=== PATIENT | male | born 1950 | race Caucasian/White ===

== ENCOUNTER 2017-03-17 08:55 | Day surgery (SDC) | payer MEDICARE ==
[~2017-03-17 08:55] MED LIST: Lactated Ringers 1,000 ML IV SCH; Sodium Chloride 0.9% 1000 ML 1,000 ML IV SCH; Sodium Chloride 0.9% 1000 ML 1,000 ML ONE; XYLOCAINE 1% HCL 20 ML MDV ONE
[2017-03-17] MEDS ORDERED: VERSED 5 MG/5 ML IV ONE (08:56)
[2017-03-17] MEDS ORDERED: DEMEROL 50 MG SDV IJ ONE ×2 (08:56)
[2017-03-17] MEDS ORDERED: Sodium Chloride 0.9% 1000 ML 1,000 ML ONE (09:07)
[2017-03-17 13:29] VITALS: O2SAT 95
[2017-03-17 14:18] VITALS: BP 121/72; PULSE 65
--- NOTE | 2017-03-17 15:32 | OP ---
SURGERY DATE/TIME: 03/17/2017 1150 PREOPERATIVE DIAGNOSIS: A 2.5 cm nonhealing lesion of back possibly cancer. POSTOPERATIVE DIAGNOSIS: A 2.5 cm nonhealing lesion of back possibly cancer. PROCEDURE: Excision of 2.5 cm lesion through a 5 x 3 cm elliptical excision with closure. SURGEON: Ishmael Cunningham M.D. GAS REVERSER: Medical Student III. ANESTHESIA: IVS sedation local. COMPLICATIONS: None. CONDITION: Stable. INDICATION: A patient requiring excision. DESCRIPTION OF PROCEDURE: Taken to the operating room. Routine prep and drape. IV sedation local anesthetic. Elliptical excision 2.5 cm through a 5 cm transverse incision, 3 cm cephalad caudad down through the skin subcu, deep fascia and deep tissue in order to perform closure. Closed with simple interrupted sutures and vertical mattress sutures #2-0 Prolene. Sterile dressing applied. The patient tolerated the procedure satisfactorily.
== END 2017-03-17 14:05 | disposition home or self-care (01) ==
LOC: SDC 08:55
PROVIDERS: ATTEND Surgery
PROC: 0HB6XZZ Excision of Back Skin, External Approach (ICD-10-PCS; principal; 2017-03-17)
DX: C43.59 Malignant melanoma of other part of trunk (principal); L98.9 Disorder of the skin and subcutaneous tissue, unspecified
CPT/HCPCS: 88305; J2175; J2250

== ENCOUNTER 2017-04-28 07:38 | Day surgery (SDC) | payer MEDICARE ==
--- NOTE | 2017-04-25 08:28 | HP ---
DATE OF SURGERY: 04/28/2017 ADMISSION DIAGNOSIS: Deep melanoma of the back. ANTICIPATED PROCEDURE: Wide excision with split thickness skin graft and [place] lymph node biopsy. PAST MEDICAL HISTORY: ALLERGIES: NONE. PAST SURGICAL HISTORY: Forehead scalp cancer. Two surgeries on the left foot. SOCIAL HISTORY: Negative. FAMILY HISTORY: Negative. REVIEW OF SYSTEMS: Negative. PHYSICAL EXAMINATION: VITAL SIGNS: Normal. CHEST: Clear. COR: Regular. IMPRESSION: The patient has deep melanoma of the back and is requiring wide excision [place] lymph node sampling.
[~2017-04-28 07:38] MED LIST changes: +Lactated Ringers 1,000 ML IV ONE; -Lactated Ringers 1,000 ML IV SCH; +Sensorcaine 0.25% 10 ML ONE; -Sodium Chloride 0.9% 1000 ML 1,000 ML IV SCH; -Sodium Chloride 0.9% 1000 ML 1,000 ML ONE; -XYLOCAINE 1% HCL 20 ML MDV ONE
[2017-04-28] MEDS ORDERED: Xylocaine 2%-Epi 1:100,000 MDV IJ ONE (07:39)
[2017-04-28] MEDS ORDERED: Quelicin Fliptop 200 MG/10 ML IJ ONE (07:39)
[2017-04-28] MEDS ORDERED: Versed 2 MG/2 ML Injection IV ONE (07:39)
[2017-04-28] MEDS ORDERED: DIPRIVAN 200 MG/20 ML IV ONE (07:39)
[2017-04-28] MEDS ORDERED: SUBLIMAZE 250 MCG/5 ML IJ ONE (07:39)
[2017-04-28] MEDS ORDERED: Zemuron 100 MG/10 ML IJ ONE (07:39)
[2017-04-28] MEDS ORDERED: MORPHINE SULFATE 10 MG/ML IV ONE (07:39)
[2017-04-28] MEDS ORDERED: BRIDION 200MG/2ML IV ONE (07:39)
[2017-04-28] MEDS ORDERED: Lactated Ringers 1,000 ML IV ONE (08:20)
[2017-04-28] MEDS ORDERED: CEFAZOLIN 2 GM-D5W BAG** 2 GM/50 ML ML IV ONE (08:21)
[2017-04-28] MEDS ORDERED: Lactated Ringers 1,000 ML IV SCH (08:30)
[2017-04-28] MEDS ORDERED: CEFAZOLIN 2 GM-D5W BAG** 2 GM/50 ML ML IV SCH (08:30)
--- NOTE | 2017-04-28 11:26 | XRAY ---
Indication: Upper back melanoma. 4 subcutaneous injections of technetium 99 sulfur colloid totaling 250 Ci was performed around the biopsy proven melanoma in the upper back. Delayed imaging was performed out to 90 minutes. A single focus of increased radiopharmaceutical activity seen in the left axilla which was demarcated for the surgeon. Impression: Technically successful nuclear medicine sentinel node injection centered around melanoma. Single sentinel node identified in the left axilla.
[2017-04-28] MEDS ORDERED: BACIGUENT 30 GM ONE (13:48)
[2017-04-28] MEDS ORDERED: MINERAL OIL LIGHT 10 ML FOR SURGERY ONE (13:49)
[2017-04-28] MEDS ORDERED: SUBLIMAZE 100 MCG/2 ML ONE (17:33)
[2017-04-28] MEDS ORDERED: Zofran 4 MG/2 ML VIAL IV STA (18:05)
[2017-04-28 21:28] VITALS: O2SAT 94
[2017-04-28 21:32] VITALS: BP 126/75; PULSE 65
--- NOTE | 2017-05-02 08:40 | OP ---
SURGERY DATE/TIME: 04/28/2017 1525 PREOPERATIVE DIAGNOSIS: Thick melanoma 4 mm of the upper back. POSTOPERATIVE DIAGNOSIS: Thick melanoma 4 mm of the upper back. PROCEDURES: 1) Left axillary [place] lymph node sampling. 2) Wide excision 12 to 14 cm circular of the excision of the lesion all the way down to and including fascia of the back. 3) [place] of 144 sq/cm split thickness skin graft from the left lower chest wall. 4) Application of 144 sq/cm of split thickness skin graft. SURGEON: Ishmael Cunningham M.D. ANESTHESIA: General. COMPLICATIONS: None. CONDITION: Stable. INDICATION: A patient with thick melanoma of the back. DESCRIPTION OF PROCEDURE: Taken to surgery. General anesthetic. Positioning. The axilla was addressed first. About four nodes were taken. One of these had increased activity consistent with [place] node and it was labeled as such. Hemostasis satisfactory. Closed with 3-0 and 4-0 Vicryl. A wide circular excision greater total hip arthroplasties 4 cm margin around the entire previous old incision. I think it is the older incision site. There was nearly a 2 cm elliptical margin of the lesion this was taken down in a slightly beveled fashion to the fascia. Hemostasis obtained with electrocautery. Split thickness skin graft was then harvested from the left lateral chest wall. It was then meshed a 1.5 to 1. It was then applied with antwon. Sterile ointment and sterile dressing applied. Sterile dressing at the other site. The patient tolerated the procedures satisfactorily.
== END 2017-04-28 20:40 | disposition home or self-care (01) ==
LOC: SDC 07:38
PROVIDERS: ATTEND Surgery
PROC: 0HR6X73 Replacement of Back Skin with Autologous Tissue Substitute, Full Thickness, External Approach (ICD-10-PCS; principal; 2017-04-28)
PROC: 0HB5XZZ Excision of Chest Skin, External Approach (ICD-10-PCS; 2017-04-28)
DX: C43.59 Malignant melanoma of other part of trunk (principal); Z85.828 Personal history of other malignant neoplasm of skin
CPT/HCPCS: 00300; 00400; 78195; 88341; 88342; A9541; J0330; J0690; J2250; J2270; J2405; J2704; J3010; A9270-GY

== ENCOUNTER 2017-05-11 09:54 | Emergency (ER) | payer MEDICARE ==
[2017-05-11 10:05] VITALS: O2SAT 94
[2017-05-11] MEDS ORDERED: Sodium Chloride 0.9% 1000 ML 1,000 ML IV STA (10:58)
--- NOTE | 2017-05-11 11:09 | ERPHSYRPT ---
- History of Present Illness Time Seen by Provider: 05/11/17 10:58 Source: patient, family Exam Limitations: no limitations Patient Subjective Stated Complaint: STATES HAS HAD SWELLING TO RIGHT SIDE OF NECK SINCE TUESDAY. HX OF SKIN CANCER WITH LYMPH NODE INVOLVEMENT OF LEFT AXILLA. HAD CANCER REMOVED FROM MID BACK WITH SKIN GRAFT DONE AND HAD LYMPH NODE FROM LEFT AXILLA REMOVED. Triage Nursing Assessment: HAS OPEN SURGICAL WOUND TO MID BACK WITH METAL KEYLA AROUND IT. CLEAN SURGICAL WOUND LEFT AXILLA. MODERATE SWELLING AND TENDERNESS NOTED TO RIGHT ANTERIOR NECK. Physician History: The patient is a 67-year-old male with family complaining of a sudden onset of right neck pain and swelling just below his jaw that began on Tuesday. He has not been able to eat solid food since the swelling. He has been able to drink liquids. He is not able to speak clearly. His voice is muffled. He denies vomiting. 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 Within the past month he had surgery in his mid upper back to remove a large section of tissue that had melanoma. It had spread into the lymph node under his left axilla. The lymph nodes were also surgically excised. Timing/Duration: abrupt onset Severity: severe ENT Location: throat Prearrival Treatment: no prearrival treatment Modifying Factors: Improves With: nothing Associated Symptoms: drooling, poor solids intake, swollen glands, sore throat Allergies/Adverse Reactions: No Known Drug Allergies Allergy (Verified 05/11/17 10:10) Home Medications: No Reportable Medications [No Reported Medications] 05/11/17 [History] Hx Tetanus, Diphtheria Vaccination/Date Given: No Hx Influenza Vaccination/Date Given: No Hx Pneumococcal Vaccination/Date Given: No - Review of Systems Constitutional: No Fever, No Chills Eyes: No Symptoms Ears, Nose, & Throat: Throat Pain, Throat Swelling, Hoarse, Painful Swallowing Respiratory: No Cough, No Dyspnea Cardiac: No Chest Pain, No Edema, No Syncope Abdominal/Gastrointestinal: No Abdominal Pain, No Nausea, No Vomiting, No Diarrhea Genitourinary Symptoms: No Dysuria Musculoskeletal: No Back Pain, No Neck Pain Skin: No Rash Neurological: No Dizziness, No Focal Weakness, No Sensory Changes Psychological: No Symptoms Endocrine: No Symptoms Hematologic/Lymphatic: No Symptoms Immunological/Allergic: No Symptoms - Past Medical History Pertinent Past Medical History: Yes Neurological History: TIA ENT History: No Pertinent History Cardiac History: No Pertinent History Respiratory History: No Pertinent History Endocrine Medical History: No Pertinent History Musculoskeletal History: Arthritis GI Medical History: Hernia History: No Pertinent History Psycho-Social History: No Pertinent History Male Reproductive Disorders: No Pertinent History Other Medical History: FOOT PROBLEMS HAS HAD INFUSION OF ANTIBIOTICS X 3 weeks 2 years ago - Past Surgical History Past Surgical History: Yes Neuro Surgical History: No Pertinent History Cardiac: No Pertinent History Respiratory: No Pertinent History Gastrointestinal: No Pertinent History Genitourinary: No Pertinent History Musculoskeletal: Orthopedic Surgery Male Surgical History: No Pertinent History Other Surgical History: SKIN CANCER REMOVAL left foot x 2, and scalp, and forehead. - Social History Smoking Status: Never smoker Exposure to second hand smoke: No Drug Use: none Patient Lives Alone: No - Nursing Vital Signs Nursing Vital Signs: Initial Vital Signs Temperature 98.0 F 05/11/17 10:04 Pulse Rate 108 H 05/11/17 10:04 Respiratory Rate 18 05/11/17 10:04 Blood Pressure 131/88 05/11/17 10:04 O2 Sat by Pulse Oximetry 94 L 05/11/17 10:04 Pain Scale Pain Intensity 3 - Physical Exam General Appearance: moderate distress Eye Exam: bilateral eye: normal inspection Ear Exam: bilateral ear: auricle normal Nasal Exam: normal inspection Throat Exam: excessive drooling, pharynx swelling, tonsillar exudate, tonsillar swelling, voice changes Neck Exam: lymphadenopathy (R) Cardiovascular/Respiratory Exam: normal breath sounds, regular rate/rhythm Abdominal Exam: non-tender, soft Neurologic Exam: alert, oriented x 3, sensation nml, No motor deficits Skin Exam: normal color, warm, dry, other (Examination of left foot shows multiple skin lesions in various degrees of healing. 2 skin lesions on the sole of his forefoot have granulomatous material. There is another lesion over the approximate left MTP joint. There is an open wound between the first 2 toes. The second toe has been surgically shortened.) SpO2 Interpretation: normal SpO2: 94 Oxygen Delivery: Room Air - CT Exams Soft Tissue Neck CT Interpretation: Tele-radiologist Report, Other (Marked enlarged palatine tonsils with dramatic narrowing of oropharynx per .) Ordered Tests: Active Orders 24 hr Category Date Time Status IV Insertion STAT Care 05/11/17 10:58 Active NECK WITH CONTRAST [CT] Stat Exams 05/11/17 10:59 Completed CBC W DIFF Stat Lab 05/11/17 11:27 Completed CMP Stat Lab 05/11/17 11:27 Completed [place] Screen Stat Lab 05/11/17 11:27 Completed STREP SCREEN-BETA A Stat Lab 05/11/17 11:27 Completed Medication Summary Generic Name Dose Route Start Last Admin Trade Name Freq PRN Reason Stop Dose Admin Ceftriaxone Sodium/Dextrose 1 g in 50 mls @ 100 mls/hr 05/11/17 13:29 13:34 Rocephin 1 Gm-D5w 50 Ml Bag IV 05/11/17 13:58 100 mls/hr STAT STA Administration Discontinued Medications Generic Name Dose Route Start Last Admin Trade Name Freq PRN Reason Stop Dose Admin Dexamethasone Sodium Phosphate 10 mg 05/11/17 13:28 05/11/17 13:34 Decadron 10mg Inj. IV 05/11/17 13:29 10 mg STAT ONE Administration Dexamethasone Sodium Phosphate Confirm 05/11/17 13:32 Decadron 10mg Inj. Administered 05/11/17 13:33 Dose 10 mg .ROUTE .STK-MED ONE Sodium Chloride 1,000 mls @ 999 mls/hr 05/11/17 10:58 05/11/17 11:28 Sodium Chloride 0.9% 1000 Ml IV 05/11/17 11:58 999 mls/hr .Q1H1M STA Administration Sodium Chloride Confirm 05/11/17 11:26 Sodium Chloride 0.9% 1000 Ml Administered 05/11/17 11:27 Dose 1,000 mls @ ud .ROUTE .STK-MED ONE Ceftriaxone Sodium/Dextrose Confirm 05/11/17 13:33 Rocephin 1 Gm-D5w 50 Ml Bag Administered 05/11/17 13:34 Dose 1 g in 50 mls @ ud IV .STK-MED ONE Lab/Rad Data: Laboratory Result Diagrams 05/11/17 11:27 05/11/17 11:27 Laboratory Results 05/11/17 05/11/17 05/11/17 Range/Units 11:27 11:27 11:27 WBC (4.0-10.5) K/mm3 RBC (4.1-5.6) M/mm3 Hgb (12.5-18.0) gm/dl Hct (42-50) % MCV (78-100) fl MCH (26-32) pg MCHC (32-36) g/dl RDW (11.5-14.0) % Plt Count (150-450) K/mm3 MPV (6-9.5) fl Gran % (36.0-66.0) % Lymphocytes % (24.0-44.0) % Monocytes % (0.0-12.0) % Eosinophils % (0.00-5.0) % Basophils % (0.0-0.4) % Basophils # (0-0.4) Sodium (136-145) mEq/L Potassium (3.5-5.1) mEq/L Chloride (98-107) mEq/L Carbon Dioxide (21-32) mEq/L Anion Gap (5-15) MEQ/L BUN (9-20) mg/dL Creatinine (0.55-1.30) mg/dl Estimated GFR ML/MIN Glucose (70-110) MG/DL Calcium (8.5-10.1) mg/dL Total Bilirubin (0.2-1.0) mg/dL AST (15-37) U/L ALT (12-78) U/L Alkaline Phosphatase (46-116) U/L Serum Total Protein (6.4-8.2) gm/dL Albumin (3.4-5.0) g/dL Monoscreen POSITIVE (Negative) Influenza Type A Ag NEGATIVE (NEGATIVE) Influenza Type B Ag NEGATIVE (NEGATIVE) RSV (PCR) NEGATIVE (Negative) Streptococcus Screen POSITIVE (Negative) Slides for Path Review 05/11/17 05/11/17 Range/Units 11:27 11:27 WBC 15.3 H (4.0-10.5) K/mm3 RBC 5.37 (4.1-5.6) M/mm3 Hgb 16.2 (12.5-18.0) gm/dl Hct 47.6 (42-50) % MCV 88.6 (78-100) fl MCH 30.2 (26-32) pg MCHC 34.0 (32-36) g/dl RDW 13.8 (11.5-14.0) % Plt Count 238 (150-450) K/mm3 MPV 9.8 H (6-9.5) fl Gran % 80.3 H (36.0-66.0) % Lymphocytes % 8.9 L (24.0-44.0) % Monocytes % 10.2 (0.0-12.0) % Eosinophils % 0.3 (0.00-5.0) % Basophils % 0.3 (0.0-0.4) % Basophils # 0.04 (0-0.4) Sodium 137 (136-145) mEq/L Potassium 4.1 (3.5-5.1) mEq/L Chloride 99 (98-107) mEq/L Carbon Dioxide 26.3 (21-32) mEq/L Anion Gap 15.4 H (5-15) MEQ/L BUN 11 (9-20) mg/dL Creatinine 1.10 (0.55-1.30) mg/dl Estimated GFR > 60 ML/MIN Glucose 125 H (70-110) MG/DL Calcium 8.9 (8.5-10.1) mg/dL Total Bilirubin 0.90 (0.2-1.0) mg/dL AST 19 (15-37) U/L ALT 19 (12-78) U/L Alkaline Phosphatase 117 H (46-116) U/L Serum Total Protein 9.3 H (6.4-8.2) gm/dL Albumin 3.0 L (3.4-5.0) g/dL Monoscreen (Negative) Influenza Type A Ag (NEGATIVE) Influenza Type B Ag (NEGATIVE) RSV (PCR) (Negative) Streptococcus Screen (Negative) Slides for Path Review YES - Progress Progress: unchanged Progress Note: 05/11/17 13:43 I first called [facility] and spoke with Dr. Rudolph who was unable to accept the patient. I then called [facility] but have not been able to speak with the hospitalist. I spoke with Dr. Franchesca Blas of ENT in [place] who would see the patient as a consult at [facility]. Dr. Robledo, hospitalist, a [facility] accepts patient. Counseled pt/family regarding: lab results, diagnosis, rad results - Departure Time of Disposition: 13:40 Departure Disposition: Transfer (Transfer to [facility] per Dr Robledo, hospitalist.) Clinical Impression: Tonsillar enlargement, Strep pharyngitis, Mononucleosis Condition: Stable Critical Care Time: No Referrals: DOCTOR,NO FAMILY [Primary Care Provider] -
[2017-05-11] MEDS ORDERED: Sodium Chloride 0.9% 1000 ML 1,000 ML ONE (11:26)
[2017-05-11 11:30] LABS: BASOPHIL % 0.3 % (0.0-0.4); Basophil (Absolute #) 0.04 (0-0.4); Eosinophil % 0.3 % (0.00-5.0); Eosinophil (Absolute #) 0.05 (0-0.5); Granulocyte Absolute (ANC) 12.27 (1.4-6.9); Granulocytes % 80.3 % (36.0-66.0); Hematocrit 47.6 % (42-50); Hemoglobin 16.2 gm/dl (12.5-18.0); Lymphocyte (Absolute #) 1.36 (1.0-4.6); Lymphocytes % 8.9 % (24.0-44.0); Mean Cell Volume 88.6 fl (78-100); Mean Corpuscular Hemoglobin 30.2 pg (26-32); Mean Platelet Volume 9.8 fl (6-9.5); Monocyte (Absolute #) 1.55 (0.0-1.3); Monocytes % 10.2 % (0.0-12.0); Platelet Count 238 K/mm3 (150-450); Red Blood Count 5.37 M/mm3 (4.1-5.6); Red Cell Distribution Width 13.8 % (11.5-14.0); White Blood Count 15.3 K/mm3 (4.0-10.5)
[2017-05-11 11:43] LABS: Slide Review 1 YES
[2017-05-11 12:02] LABS: INFLUENZA A NEGATIVE (NEGATIVE); INFLUENZA B NEGATIVE (NEGATIVE); RESPIRATORY SYNCTIAL VIRUS NEGATIVE (Negative)
[2017-05-11 12:05] LABS: ALKALINE PHOSPHATASE 117 U/L (46-116); ANION GAP 15.4 MEQ/L (5-15); BLOOD UREA NITROGEN 11 mg/dL (9-20); CHLORIDE 99 mEq/L (98-107); Calcium 8.9 mg/dL (8.5-10.1); Carbon Dioxide 26.3 mEq/L (21-32); Glucose 125 MG/DL (70-110); Potassium 4.1 mEq/L (3.5-5.1); SGOT/AST 19 U/L (15-37); SGPT/ALT 19 U/L (12-78); SODIUM 137 mEq/L (136-145); Total Protein 9.3 gm/dL (6.4-8.2)
--- NOTE | 2017-05-11 12:57 | XRAY ---
Indication: Bilateral pain/swelling under jaw. History melanoma. Multiple contiguous axial images obtained through the neck using 80 cc Isovue 370 contrast. Sagittal and coronal reformatted images obtained. Comparison: None There are multiple bilateral dental amalgams producing beam artifact limiting these levels. Moderate/marked enlargement of the palatine tonsils, right greater than left dramatically narrows the oropharynx. Adenoids unremarkable. Remaining infraglottic airway widely patent. Normal epiglottis. There are scattered borderline prominent bilateral cervical and lesser degree submandibular lymph nodes, largest level I on the right measuring 13 x 21 mm. Smaller subcentimeter bilateral supraclavicular nodes. Parotid and submental glands are bilaterally symmetric. Major arteries and veins are normal in course and caliber. Thyroid gland atrophic without focal mass/nodule. Underlying cervical spine demonstrates moderate multilevel degenerative changes greatest at the C6-C7 level. Floor the right maxillary sinus demonstrates mild mucosal thickening. Base of the brain and lung apices are unremarkable. Posterior back demonstrate partially visualized posterior changes with numerous surgical antwon. Impression: 1. Moderate/marked enlarged palatine tonsils, right greater than left. Rule out tonsillitis. 2. Several borderline prominent lymph nodes bilaterally presumed reactive. Metastasis not completely excluded given history of melanoma. 3. Incidental multilevel cervical degenerative changes and right maxillary maxillary sinus disease. CT DI 13.16
[2017-05-11] MEDS ORDERED: DECADRON 10MG INJ. IV ONE (13:28)
[2017-05-11] MEDS ORDERED: ROCEPHIN 1 Gm-D5w 50 ml Bag** 1 G/50 ML IVPB IV STA (13:29)
[2017-05-11] MEDS ORDERED: DECADRON 10MG INJ. ONE (13:32)
[2017-05-11] MEDS ORDERED: ROCEPHIN 1 Gm-D5w 50 ml Bag** 1 G/50 ML IVPB IV ONE (13:33)
[2017-05-11 14:44] VITALS: BP 108/85; PULSE 84
== END 2017-05-11 14:45 | disposition short-term general hospital (02) ==
LOC: ED 09:54
DX: J35.1 Hypertrophy of tonsils (principal); J02.0 Streptococcal pharyngitis; B27.90 Infectious mononucleosis, unspecified without complication; M54.2 Cervicalgia; L98.9 Disorder of the skin and subcutaneous tissue, unspecified; Z85.828 Personal history of other malignant neoplasm of skin
CPT/HCPCS: 36000; 36415; 70491; 80053; 85025; 86308; 87430; 87631; 96360; 96365; 96374; 99285; J0696; J1100

== ENCOUNTER 2017-06-20 20:01 | Inpatient (IN) | payer MEDICARE, SELFPAY ==
[2017-06-20] MEDS ORDERED: Sodium Chloride 0.9% 1000 ML 1,000 ML IV STA (20:25)
[2017-06-20] MEDS ORDERED: CLINDAMYCIN-D5W 900 MG/50 ML*** 900 MG/50 ML BAG IV STA (20:27)
[2017-06-20] MEDS ORDERED: TYLENOL 325 MG PO ONE (20:40)
--- NOTE | 2017-06-20 20:40 | ERPHSYRPT ---
- History of Present Illness Time Seen by Provider: 06/20/17 20:09 Source: patient, family (FIANCE & DAUGHTER) Exam Limitations: no limitations Physician History: FOR THE PAST 4 DAYS PT HAS HAD REDNESS OF THE LEFT FOOT; FOR THE PAST 2 DAYS INCONTINENCE OF URINE AND BLEEDING FROM THE ULCER ON THE DORSUM OF HIS LEFT FOREFOOT; TODAY DIAPHORESIS AND CHILLS. PT HAS HAD LEFT FOOT SWELLING WITH ULCER (S) FOR THE PAST 7 YEARS. Allergies/Adverse Reactions: No Known Drug Allergies Allergy (Verified 05/11/17 10:10) Home Medications: No Reportable Medications [No Reported Medications] 05/11/17 [History] Hx Tetanus, Diphtheria Vaccination/Date Given: No Hx Influenza Vaccination/Date Given: No Hx Pneumococcal Vaccination/Date Given: No - Review of Systems Constitutional: Chills Respiratory: No Dyspnea Cardiac: No Chest Pain Abdominal/Gastrointestinal: No Abdominal Pain, No Vomiting Genitourinary Symptoms: Incontinence Musculoskeletal: Other (LEFT FOOT ERYTHEMA/SWELLING) Skin: Decubiti (LEFT FOOT), Other (HX MELANOMA OF UPPER BACK) Endocrine: Excessive Sweating All Other Systems: Reviewed and Negative - Past Medical History Pertinent Past Medical History: Yes Neurological History: TIA ENT History: No Pertinent History Cardiac History: No Pertinent History Respiratory History: No Pertinent History Endocrine Medical History: No Pertinent History Musculoskeletal History: Arthritis GI Medical History: Hernia History: No Pertinent History Psycho-Social History: No Pertinent History Male Reproductive Disorders: No Pertinent History Other Medical History: FOOT PROBLEMS HAS HAD INFUSION OF ANTIBIOTICS X 3 weeks 2 years ago - Past Surgical History Past Surgical History: Yes Neuro Surgical History: No Pertinent History Cardiac: No Pertinent History Respiratory: No Pertinent History Gastrointestinal: No Pertinent History Genitourinary: No Pertinent History Musculoskeletal: Orthopedic Surgery Male Surgical History: No Pertinent History Other Surgical History: SKIN CANCER REMOVAL left foot x 2, and scalp, and forehead. - Social History Smoking Status: Never smoker Exposure to second hand smoke: No Drug Use: none Patient Lives Alone: No - Nursing Vital Signs Nursing Vital Signs: Initial Vital Signs Temperature 102.5 F 06/20/17 20:36 Pulse Rate 104 H 06/20/17 20:36 Respiratory Rate 22 06/20/17 20:36 Blood Pressure 105/59 06/20/17 20:36 O2 Sat by Pulse Oximetry 94 L 06/20/17 20:36 Pain Scale Pain Intensity 3 - Physical Exam General Appearance: alert Eye Exam: PERRL/EOMI Ears, Nose, Throat Exam: pharynx normal, moist mucous membranes Neck Exam: normal inspection Respiratory Exam: lungs clear Cardiovascular Exam: normal heart sounds Gastrointestinal/Abdomen Exam: soft, normal bowel sounds Back Exam: normal range of motion, other (UPPER MID BACK HAS A SURGICAL SCAR ~ 10 CM X 8 CM(FROM REMOVAL OF MELANOMA)) Extremity Exam: pedal edema (+3 EDEMA OF LEFT FOOT WITH ERYTHEMA AND ~ 1.5 CM X 1 CM DECUBITUS ULCER OOZING BLOOD ON DORSUM OF LEFT FOREFOOT.) Neurologic Exam: alert, cooperative Skin Exam: decubitus ((2) ~ 1 CM DIAMETER DECUBITUS ULCERS ON PLANTAR ASPECT OF LEFT FOREFOOT.) - Course Nursing assessment & vital signs reviewed: Yes Ordered Tests: Active Orders 24 hr Category Date Time Status IV Insertion STAT Care 06/20/17 20:25 Active Wound Care STAT Care 06/20/17 20:41 Active AMYLASE Stat Lab 06/20/17 20:50 Completed BLOOD CULTURE Stat Lab 06/20/17 21:00 Received CBC W DIFF Stat Lab 06/20/17 20:50 Completed CMP Stat Lab 06/20/17 20:50 Completed CULTURE,URINE Stat Lab 06/20/17 21:20 Received CULTURE,WOUND Stat Lab 06/20/17 Uncollected LIPASE Stat Lab 06/20/17 20:50 Completed Lactic Acid Stat Lab 06/20/17 21:03 Results MAGNESIUM Stat Lab 06/20/17 20:50 Completed Manual Differential NC Stat Lab 06/20/17 20:50 Completed PROTIME WITH INR Stat Lab 06/20/17 20:50 Completed PTT Stat Lab 06/20/17 20:50 Completed UA W/ MICROSCOPIC Stat Lab 06/20/17 21:20 Completed Medication Summary Discontinued Medications Generic Name Dose Route Start Last Admin Trade Name Freq PRN Reason Stop Dose Admin Acetaminophen 975 mg 06/20/17 20:40 06/20/17 21:22 Tylenol 325 Mg PO 06/20/17 20:41 975 mg STAT ONE Administration Acetaminophen Confirm 06/20/17 21:20 Tylenol 325 Mg Administered 06/20/17 21:21 Dose 975 mg .ROUTE .STK-MED ONE Clindamycin HCl/Dextrose 900 mg in 50 mls @ 100 mls/hr 06/20/17 20:27 21:23 Clindamycin-D5w 900 Mg/50 Ml IV 06/20/17 20:56 100 mls/hr STAT STA Administration Sodium Chloride 1,000 mls @ 999 mls/hr 06/20/17 20:25 06/20/17 21:23 Sodium Chloride 0.9% 1000 Ml IV 06/20/17 21:25 999 mls/hr .Q1H1M STA Administration Clindamycin HCl/Dextrose Confirm 06/20/17 21:20 Clindamycin-D5w 900 Mg/50 Ml Administered 06/20/17 21:21 Dose 900 mg in 50 mls @ ud IV .STK-MED ONE Sodium Chloride Confirm 06/20/17 21:20 Sodium Chloride 0.9% 1000 Ml Administered 06/20/17 21:21 Dose 1,000 mls @ ud .ROUTE .STK-MED ONE Lab/Rad Data: Laboratory Result Diagrams 06/20/17 20:50 06/20/17 20:50 Laboratory Results 06/20/17 06/20/17 06/20/17 Range/Units 21:20 21:03 20:50 WBC (4.0-10.5) K/mm3 RBC (4.1-5.6) M/mm3 Hgb (12.5-18.0) gm/dl Hct (42-50) % MCV (78-100) fl MCH (26-32) pg MCHC (32-36) g/dl RDW (11.5-14.0) % Plt Count (150-450) K/mm3 MPV (6-9.5) fl Absolute Granulocytes (1.4-6.9) PT 18.2 H (8.83-12.87) SECONDS INR 1.63 (0.8-3.0) APTT 31.6 (24.1-36.1) SECONDS Sodium (137-145) mmol/L Potassium (3.5-5.1) mmol/L Chloride (98-107) mmol/L Carbon Dioxide (22-30) mmol/L Anion Gap (5-15) MEQ/L BUN (9-20) mg/dL Creatinine (0.66-1.25) mg/dL Estimated GFR ML/MIN Glucose (74-106) mg/dL Lactic Acid 1.9 (0.4-2.0) Calcium (8.4-10.2) mg/dL Magnesium (1.6-2.3) mg/dL Total Bilirubin (0.2-1.3) mg/dL AST (17-59) U/L ALT (0-50) U/L Alkaline Phosphatase (38-126) U/L Serum Total Protein (6.3-8.2) g/dL Albumin (3.5-5.0) g/dL Amylase (30-110) U/L Lipase (23-300) U/L Ur Collection Type CLEAN CATCH Urine Color TALON (YELLOW) Urine Appearance CLEAR (CLEAR) Urine pH 5.0 (5-6) Ur Specific Edison 1.020 (1.005-1.025) Urine Protein 100 (Negative) Urine Ketones NEGATIVE (NEGATIVE) Urine Blood 250 (0-5) Robbie/ul Urine Nitrite NEGATIVE (NEGATIVE) Urine Bilirubin NEGATIVE (NEGATIVE) Urine Urobilinogen NORMAL (0-1) mg/dL Ur Leukocyte Esterase NEGATIVE (NEGATIVE) Urine Microscopic RBC 10-15 (0-2) /HPF Urine Bacteria FEW (NEGATIVE) /HPF Urine Mucus SLIGHT (NEGATIVE) /HPF Urine Culture Reflexed YES (NO) Urine Glucose NEGATIVE (NEGATIVE) mg/dL Specimen Received 06-20-17 06/20/17 06/20/17 Range/Units 20:50 20:50 WBC 21.2 H (4.0-10.5) K/mm3 RBC 4.66 (4.1-5.6) M/mm3 Hgb 14.0 (12.5-18.0) gm/dl Hct 40.4 L (42-50) % MCV 86.7 (78-100) fl MCH 30.0 (26-32) pg MCHC 34.7 (32-36) g/dl RDW 14.2 H (11.5-14.0) % Plt Count 215 (150-450) K/mm3 MPV 10.7 H (6-9.5) fl Absolute Granulocytes 18.93 H (1.4-6.9) PT (8.83-12.87) SECONDS INR (0.8-3.0) APTT (24.1-36.1) SECONDS Sodium 134 L (137-145) mmol/L Potassium 4.1 (3.5-5.1) mmol/L Chloride 98 (98-107) mmol/L Carbon Dioxide 26 (22-30) mmol/L Anion Gap 14.2 (5-15) MEQ/L BUN 22 H (9-20) mg/dL Creatinine 1.26 H (0.66-1.25) mg/dL Estimated GFR > 60.0 ML/MIN Glucose 139 H (74-106) mg/dL Lactic Acid (0.4-2.0) Calcium 8.7 (8.4-10.2) mg/dL Magnesium 1.8 (1.6-2.3) mg/dL Total Bilirubin 1.50 H (0.2-1.3) mg/dL AST 26 (17-59) U/L ALT 18 (0-50) U/L Alkaline Phosphatase 104 (38-126) U/L Serum Total Protein 8.2 (6.3-8.2) g/dL Albumin 3.9 (3.5-5.0) g/dL Amylase 117 H (30-110) U/L Lipase 321 H (23-300) U/L Ur Collection Type Urine Color (YELLOW) Urine Appearance (CLEAR) Urine pH (5-6) Ur Specific Edison (1.005-1.025) Urine Protein (Negative) Urine Ketones (NEGATIVE) Urine Blood (0-5) Robbie/ul Urine Nitrite (NEGATIVE) Urine Bilirubin (NEGATIVE) Urine Urobilinogen (0-1) mg/dL Ur Leukocyte Esterase (NEGATIVE) Urine Microscopic RBC (0-2) /HPF Urine Bacteria (NEGATIVE) /HPF Urine Mucus (NEGATIVE) /HPF Urine Culture Reflexed (NO) Urine Glucose (NEGATIVE) mg/dL Specimen Received - Progress Discussed with DrJefe: Yanick (OBS - [id number]) - Departure Time of Disposition: 21:56 Departure Disposition: Observation Clinical Impression: CELLULITIS OF LEFT FOOT, DECUBITUS ULCERS OF LEFT FOOT, ARTHRITIS Condition: Stable Critical Care Time: No Referrals: DOCTOR,NO FAMILY [Primary Care Provider] -
[2017-06-20 21:08] LABS: Granulocyte Absolute (ANC) 18.93 (1.4-6.9); Hematocrit 40.4 % (42-50); Mean Cell Volume 86.7 fl (78-100); Mean Corpuscular Hgb Concent. 34.7 g/dl (32-36); Mean Platelet Volume 10.7 fl (6-9.5); Platelet Count 215 K/mm3 (150-450); Red Blood Count 4.66 M/mm3 (4.1-5.6); Red Cell Distribution Width 14.2 % (11.5-14.0); White Blood Count 21.2 K/mm3 (4.0-10.5)
[2017-06-20 21:16] LABS: Lactic Acid 1.9 (0.4-2.0)
[2017-06-20 21:18] LABS: INR 1.63 (0.8-3.0)
[2017-06-20 21:20] LABS: PTT 31.6 SECONDS (24.1-36.1)
[2017-06-20] MEDS ORDERED: TYLENOL 325 MG ONE (21:20)
[2017-06-20] MEDS ORDERED: CLINDAMYCIN-D5W 900 MG/50 ML*** 900 MG/50 ML BAG IV ONE (21:20)
[2017-06-20] MEDS ORDERED: Sodium Chloride 0.9% 1000 ML 1,000 ML ONE (21:20)
[2017-06-20 21:24] LABS: ALBUMIN 3.9 g/dL (3.5-5.0); ALKALINE PHOSPHATASE 104 U/L (38-126); AMYLASE 117 U/L (30-110); ANION GAP 14.2 MEQ/L (5-15); BLOOD UREA NITROGEN 22 mg/dL (9-20); CHLORIDE 98 mmol/L (98-107); Calcium 8.7 mg/dL (8.4-10.2); Carbon Dioxide 26 mmol/L (22-30); Creatinine 1 1.26 mg/dL (0.66-1.25); Glucose 139 mg/dL (74-106); LIPASE 321 U/L (23-300); Potassium 4.1 mmol/L (3.5-5.1); SGOT/AST 26 U/L (17-59); SGPT/ALT 18 U/L (0-50); SODIUM 134 mmol/L (137-145); Total Protein 8.2 g/dL (6.3-8.2)
[2017-06-20 21:31] LABS: Appearance CLEAR (CLEAR); Bilirubin NEGATIVE (NEGATIVE); Blood 250 Ery/ul (0-5); Glucose NEGATIVE (NEGATIVE); Ketones NEGATIVE (NEGATIVE); Leukocyte Esterase NEGATIVE (NEGATIVE); Nitrite NEGATIVE (NEGATIVE); Protein,Urine Dip 100 (Negative); Urobilinogen NORMAL mg/dL (0-1)
[2017-06-20 21:32] LABS: Bacteria FEW /HPF (NEGATIVE); Mucus SLIGHT /HPF (NEGATIVE)
[2017-06-20] MEDS ORDERED: ENOXAPARIN SODIUM SQ ONE ×2 (21:57→22:09)
[2017-06-20] MEDS ORDERED: MORPHINE SULFATE 2 MG INJ IV PRN (22:58)
[2017-06-20] MEDS ORDERED: Zofran 4 MG/2 ML VIAL IV PRN (22:58)
[2017-06-20] MEDS ORDERED: TYLENOL 325 MG PO PRN (22:58)
[2017-06-20 23:35] LABS: BAND 4 % (0.0-2.0); Lymphocytes 1 % (24-44); Monocyte 2 % (0.0-12.0); Neutrophils 93 % (36.-66.); Platelet Estimate NORMAL (NORMAL); Total Cells Counted 100
[2017-06-21] MEDS: Sodium Chloride 0.9% 1000 ML 1,000 ML IV SCH ×3 (00:50→15:19)
[2017-06-21] MEDS: CLINDAMYCIN-D5W 600 MG/50 ML*** 600 MG/50 ML BAG IV SCH ×4 (00:50→21:23)
[2017-06-21 05:18] LABS: Granulocyte Absolute (ANC) 17.88 (1.4-6.9); Hematocrit 41.7 % (42-50); Hemoglobin 14.2 gm/dl (12.5-18.0); Mean Cell Volume 88.7 fl (78-100); Mean Corpuscular Hemoglobin 30.2 pg (26-32); Mean Corpuscular Hgb Concent. 34.1 g/dl (32-36); Mean Platelet Volume 10.8 fl (6-9.5); Platelet Count 156 K/mm3 (150-450); Red Cell Distribution Width 14.3 % (11.5-14.0); White Blood Count 20.7 K/mm3 (4.0-10.5)
[2017-06-21 05:31] LABS: ALBUMIN 3.4 g/dL (3.5-5.0); ALKALINE PHOSPHATASE 99 U/L (38-126); AMYLASE 68 U/L (30-110); ANION GAP 15.6 MEQ/L (5-15); BLOOD UREA NITROGEN 25 mg/dL (9-20); CHLORIDE 99 mmol/L (98-107); Calcium 8.2 mg/dL (8.4-10.2); Carbon Dioxide 22 mmol/L (22-30); Creatinine 1 1.25 mg/dL (0.66-1.25); Glucose 123 mg/dL (74-106); LIPASE 45 U/L (23-300); Potassium 3.8 mmol/L (3.5-5.1); SGOT/AST 19 U/L (17-59); SGPT/ALT 14 U/L (0-50); SODIUM 133 mmol/L (137-145)
[2017-06-21 06:16] LABS: BAND 3 % (0.0-2.0); Neutrophils 97 % (36.-66.); Platelet Estimate NORMAL (NORMAL); Total Cells Counted 100
--- NOTE | 2017-06-21 08:08 | PCM.HP ---
History of Present Illness - Chief Complaint Chief Complaint: DECUBITUS ULCERS ON LEFT FOOT Date: 06/21/17 History of Present Illness: is a 67 year old male. who has had chronic problem with recurrent foot wounds with a previous osteomyelitis of the left foot in 2016 that he was treated at [facility] for IV antibiotics followed by partial amputations by Dr. Ledesma in [place]. He started having new sores open up 6 months ago and did not seek treatment for these. He says they were a little better when he was given antibiotics for his throat infection 2 months ago but last week the foot became much more painful and swollen and much worse over the last 3 days with drainage swelling redness and fever. He also developed nausea and decreased appetite. - Review of Systems Constitutional: Fever, Chills, Fatigue Eyes: No Discharge, No Vision Changes Ears, Nose, & Throat: No Ear Pain, No Nose Pain, No Nose Discharge, No Sinus Drainage, No Throat Swelling Respiratory: No Cough, No Orthopnea, No Short Of Breath Cardiac: No Chest Pain, No Edema, No Palpitations Abdominal/Gastrointestinal: Nausea, No Abdominal Pain, No Vomiting Musculoskeletal: Deformity, Joint Redness Skin: Cellulitis, Skin Lesions Neurological: No Focal Weakness, No Headache, No Speech Changes Psychological: No Symptoms Endocrine: No Symptoms Hematologic/Lymphatic: No Symptoms Medications & Allergies Home Medications: Home Medication List No Reportable Medications [No Reported Medications] 05/11/17 [History Confirmed 06/20/17] Allergies/Adverse Reactions: Allergies Allergy/AdvReac Type Severity Reaction Status Date / Time No Known Drug Allergies Allergy Verified 05/11/17 10:10 - Past Medical History Past Medical History: Yes Neurological History: Stroke, TIA ENT History: No Pertinent History Cardiac History: No Pertinent History Respiratory History: No Pertinent History Endocrine Medical History: No Pertinent History Musculoskelatal History: Arthritis GI Medical History: Hernia History: No Pertinent History Pyscho-Social History: No Pertinent History Male Reproductive Disorders: No Pertinent History Comment: FOOT PROBLEMS HAS HAD INFUSION OF ANTIBIOTICS X 3 weeks 2 years ago - Past Surgical History Past Surgical History: Yes Neuro Surgical History: No Pertinent History Cardiac History: No Pertinent History Respiratory Surgery: No Pertinent History GI Surgical History: No Pertinent History Genitourinary Surgical Hx: No Pertinent History Musculskeletal Surgical Hx: Orthopedic Surgery Male Surgical History: No Pertinent History Other Surgical History: MELANOMA wide excision no residual 04/28/2017 with negative axillary nodes X12: Melanoma REMOVAL Mar 17 2017 back ,left foot x 2, and scalp, and forehead past for skin cancer removal - Social History Smoking Status: Never smoker Exposure to second hand smoke: No Alcohol: None Drug Use: none - Physical Exam Vital Signs: Vital Signs - 24 hr Temp Pulse Resp BP Pulse Ox 06/21/17 07:59 99.8 F 96 H 18 98/70 94 L 06/21/17 04:00 98.8 F 93 H 20 132/63 94 L 06/21/17 00:00 100 F 114 H 20 113/59 91 L 06/20/17 23:03 100 F 114 H 20 113/59 90 L 06/20/17 22:58 100 F 114 H 20 113/59 90 L 06/20/17 20:36 102.5 F 104 H 22 105/59 94 L General Appearance: obese Neurologic Exam: alert, oriented x 3, cooperative Eye Exam: PERRL/EOMI, No scleral icterus, No pale conjunctivae Ears, Nose, Throat Exam: moist mucous membranes Neck Exam: non-tender, supple Respiratory Exam: normal breath sounds, lungs clear Cardiovascular Exam: regular rate/rhythm, normal heart sounds, normal peripheral pulses Gastrointestinal/Abdomen Exam: soft, normal bowel sounds, No tenderness, No distention, No mass, No guarding Extremity Exam: deformities, pedal edema, No calf tenderness Skin Exam: warm (right foot with 2 scabbed ulcerations on the bottom of the foot and a large open deep ulceration on top of the foot adjacent to the 1st metataral open with found smelling bloody drainage about 2cm X 1.5 cm with extensive warmth and swelling around the wound and chronic deformities from the previous surgery with amputation) Results - Labs Lab/Micro Results: Lab Results-Last 24 Hours 06/21/17 06/21/17 Range/Units 04:50 04:50 WBC 20.7 H (4.0-10.5) K/mm3 RBC 4.70 (4.1-5.6) M/mm3 Hgb 14.2 (12.5-18.0) gm/dl Hct 41.7 L (42-50) % MCV 88.7 (78-100) fl MCH 30.2 (26-32) pg MCHC 34.1 (32-36) g/dl RDW 14.3 H (11.5-14.0) % Plt Count 156 (150-450) K/mm3 MPV 10.8 H (6-9.5) fl Absolute Granulocytes 17.88 H (1.4-6.9) Segmented Neutrophils 97 H (36.-66.) % Band Neutrophils 3 H (0.0-2.0) % Differential Comment NORMAL Platelet Estimate NORMAL (NORMAL) Sodium 133 L (137-145) mmol/L Potassium 3.8 (3.5-5.1) mmol/L Chloride 99 (98-107) mmol/L Carbon Dioxide 22 (22-30) mmol/L Anion Gap 15.6 H (5-15) MEQ/L BUN 25 H (9-20) mg/dL Creatinine 1.25 (0.66-1.25) mg/dL Estimated GFR > 60.0 ML/MIN Glucose 123 H (74-106) mg/dL Calcium 8.2 L (8.4-10.2) mg/dL Total Bilirubin 1.30 (0.2-1.3) mg/dL AST 19 (17-59) U/L ALT 14 (0-50) U/L Alkaline Phosphatase 99 (38-126) U/L Serum Total Protein 7.0 (6.3-8.2) g/dL Albumin 3.4 L (3.5-5.0) g/dL Amylase 68 (30-110) U/L Lipase 45 (23-300) U/L Assessment/Plan (1) Cellulitis Current Visit: Yes Status: Acute Qualifiers: Site of cellulitis of extremity: lower extremity Laterality: left Assessment & Plan: with sepsis wound culture obtained Rule out osteomyelitis given history get xray foot ESR and CRP consider MRI if still doubt was started on clinda in ED will likely broaden spectrum given severity and previous history pending cultures get labs and xray and discuss surgery consult vs transfer vs podiatry consult lovenox for ppx with chronic wounds check arterial ultrasound for viability Code(s): L03.90 - CELLULITIS, UNSPECIFIED (2) Sepsis Current Visit: Yes Status: Acute
[2017-06-21] MEDS: TYLENOL 325 MG PO SCH ×4 (09:11→23:31)
--- NOTE | 2017-06-21 09:31 | XRAY ---
Indication: Osteomyelitis. Comparison: None 3 nonweightbearing views of the left foot demonstrates midfoot degenerative changes, heel spurs, 1st MTP advanced degenerative changes, distal 2nd metatarsal amputation, and 3rd metatarsal head deformity with heterotopic ossifications presumed from old injury/surgery. Diffuse forefoot soft tissue swelling with subcutaneous emphysema presumed from gas-forming infection. No suspicious bony lesions or osseous destructive process.
[2017-06-21] MEDS ORDERED: ENOXAPARIN SODIUM SQ SCH (10:00)
--- NOTE | 2017-06-21 11:41 | XRAY ---
Indication: Nonhealing wound. Two-dimensional sonogram and color Doppler imaging of the major arteries of the left leg was performed. Comparison: None Visualized common femoral, superficial femoral popliteal, and dorsal pedal arteries appear widely patent with multiphasic arterial waveforms. Posterior tibial artery demonstrates minimal arteriosclerotic disease without critical stenosis/obstruction and demonstrates normal biphasic arterial waveforms. Left arm brachial pressure is 92. Left ankle pressure is 110. Ankle brachial index is 1.2, normal. Impression: Minimal arteriosclerotic disease in the posterior tibial artery. Remaining left leg arterial Doppler sonogram is negative for critical stenosis/obstruction. Normal ankle-brachial index 1.2.
[2017-06-21] MEDS ORDERED: VANCOCIN 1 GM VIAL*** 1 GM in Sodium Chloride 0.9% 250 ML 250 ML IV SCH (14:30)
[2017-06-21] MEDS: Zosyn 3.375GM/100 Ml D5W 3.375 GM/100 ML IVPB IV SCH ×3 (15:19→23:31)
[2017-06-21] MEDS ORDERED: PHARMACY DOSING REQUIRED: VANCOMYCIN IV ONE (15:48)
[2017-06-21] MEDS ORDERED: VANCOCIN 1 GM VIAL*** 2 GM in Sodium Chloride 0.9% 500 ML 500 ML IV SCH (16:00)
[2017-06-21] MEDS ORDERED: Klonopin 0.5 MG PO PRN (20:05)
[2017-06-22] MEDS: CLINDAMYCIN-D5W 600 MG/50 ML*** 600 MG/50 ML BAG IV SCH ×3 (05:14→22:06)
[2017-06-22] MEDS: TYLENOL 325 MG PO SCH ×3 (05:19→17:19)
[2017-06-22 05:54] LABS: BASOPHIL % 0.2 % (0.0-0.4); Basophil (Absolute #) 0.02 (0-0.4); Eosinophil % 0.5 % (0.00-5.0); Eosinophil (Absolute #) 0.06 (0-0.5); Granulocyte Absolute (ANC) 9.31 (1.4-6.9); Granulocytes % 83.5 % (36.0-66.0); Hematocrit 37.8 % (42-50); Hemoglobin 12.6 gm/dl (12.5-18.0); Lymphocyte (Absolute #) 0.79 (1.0-4.6); Lymphocytes % 7.1 % (24.0-44.0); Mean Cell Volume 89.2 fl (78-100); Mean Corpuscular Hemoglobin 29.7 pg (26-32); Mean Corpuscular Hgb Concent. 33.3 g/dl (32-36); Mean Platelet Volume 10.7 fl (6-9.5); Monocyte (Absolute #) 0.97 (0.0-1.3); Monocytes % 8.7 % (0.0-12.0); Platelet Count 172 K/mm3 (150-450); Red Blood Count 4.24 M/mm3 (4.1-5.6); Red Cell Distribution Width 14.4 % (11.5-14.0); White Blood Count 11.2 K/mm3 (4.0-10.5)
[2017-06-22] MEDS: Zosyn 3.375GM/100 Ml D5W 3.375 GM/100 ML IVPB IV SCH ×3 (05:57→17:20)
[2017-06-22 06:16] LABS: ANION GAP 12.6 MEQ/L (5-15); BLOOD UREA NITROGEN 18 mg/dL (9-20); CHLORIDE 102 mmol/L (98-107); Carbon Dioxide 25 mmol/L (22-30); Creatinine 1 1.01 mg/dL (0.66-1.25); Glucose 111 mg/dL (74-106); Potassium 3.8 mmol/L (3.5-5.1); SODIUM 136 mmol/L (137-145)
[2017-06-22] MEDS ORDERED: Klonopin 0.5 MG PO PRN (06:33)
[2017-06-22] MEDS: VANCOCIN 1 GM VIAL*** 1.5 GM in Sodium Chloride 0.9% 500 ML 500 ML IV SCH ×2 (06:53→20:23)
--- NOTE | 2017-06-22 07:58 | PCM.NOTE ---
Date and Time: 06/22/17 0747 Subjective Assessment: Feeling better today no fever or chills no nausea pain is controlled he has decreased feeling in the feet and really isn't having any pain. Objective Exam General Appearance: no apparent distress, alert, obese Neurologic Exam: alert, oriented x 3, cooperative, normal mood/affect, nml cerebellar function, sensation nml, No motor deficits Eye Exam: PERRL, EOMI, eyes nml inspection Ears, Nose, Throat Exam: normal ENT inspection, pharynx normal, moist mucous membranes Neck Exam: normal inspection, non-tender, supple, full range of motion Respiratory Exam: normal breath sounds, lungs clear, No respiratory distress Cardiovascular Exam: regular rate/rhythm, normal heart sounds Gastrointestinal/Abdomen Exam: soft, No tenderness, No mass Extremity Exam: other (left foot with swelling and now has fluctuance adjacent to the ulcertion on the dorsal aspect of the foot proximally the swelling is a little better but distally worse with more swelling in the great toe the open ulceration about 2 cm X 1.5 cm is actively draining a copious amount of purulent material no crepitus in the skin. He has the 2 ulcerations on the bottom of the foot as well on the left and the chronic deformity from the partial amputations on the left) Back Exam: normal inspection, normal range of motion, No CVA tenderness, No vertebral tenderness Male Genitalia Exam: deferred Rectal Exam: deferred OBJECTIVE DATA Vital Signs: Vital Signs - 24 hr Temp Pulse Resp BP Pulse Ox 06/22/17 07:22 98.5 F 93 H 20 146/64 90 L 06/22/17 04:00 98.2 F 88 19 117/58 92 L 06/22/17 00:00 98.7 F 93 H 18 101/57 93 L 06/21/17 20:00 99.1 F 84 19 91/50 93 L 06/21/17 16:00 98.4 F 101 H 20 111/56 94 L 06/21/17 11:27 100 F 88 18 110/65 91 L 06/21/17 07:59 99.8 F 96 H 18 98/70 94 L Pain Assessment - Last Documented Pain Intensity 0 Pain Scale Used 0-10 Pain Scale Intake and Output: Intake & Output 04/08/18 04/09/18 04/10/18 04/11/18 11:59 11:59 11:59 11:59 Intake Total 2661 Output Total 800 Balance 1861 Weight 124.7 kg Lab Results: Lab Results-Last 24 Hours 06/21/17 06/22/17 06/22/17 Range/Units 09:36 05:28 05:28 WBC 11.2 H (4.0-10.5) K/mm3 RBC 4.24 (4.1-5.6) M/mm3 Hgb 12.6 (12.5-18.0) gm/dl Hct 37.8 L (42-50) % MCV 89.2 (78-100) fl MCH 29.7 (26-32) pg MCHC 33.3 (32-36) g/dl RDW 14.4 H (11.5-14.0) % Plt Count 172 (150-450) K/mm3 MPV 10.7 H (6-9.5) fl Gran % 83.5 H (36.0-66.0) % Eos # (Auto) 0.06 (0-0.5) Absolute Lymphs (auto) 0.79 L (1.0-4.6) Absolute Monos (auto) 0.97 (0.0-1.3) Lymphocytes % 7.1 L (24.0-44.0) % Monocytes % 8.7 (0.0-12.0) % Eosinophils % 0.5 (0.00-5.0) % Basophils % 0.2 (0.0-0.4) % Absolute Granulocytes 9.31 H (1.4-6.9) Basophils # 0.02 (0-0.4) ESR 10 (0-15) mm/hr Sodium 136 L (137-145) mmol/L Potassium 3.8 (3.5-5.1) mmol/L Chloride 102 (98-107) mmol/L Carbon Dioxide 25 (22-30) mmol/L Anion Gap 12.6 (5-15) MEQ/L BUN 18 (9-20) mg/dL Creatinine 1.01 (0.66-1.25) mg/dL Estimated GFR > 60.0 ML/MIN Glucose 111 H (74-106) mg/dL Calcium 8.0 L (8.4-10.2) mg/dL Radiology Exams: Radiology Procedures Category Date Time Status ARTERIAL UNILAT/LTD LOWER EXT [US] Routine Exams 04/10/18 11:04 Completed FOOT (MINIMUM 3 VIEWS) Stat Exams 06/21/17 08:59 Completed Assessment/Plan (1) Necrotizing cellulitis Current Visit: Yes Status: Acute Assessment & Plan: draining purulent material more fluctance now then yesterday it appears has planned I and D today with Dr. Cunningham the sepsis is improving with the vanc + zosyn + clinda monitor cultures Code(s): L03.90 - CELLULITIS, UNSPECIFIED (2) Sepsis Current Visit: Yes Status: Acute (3) Bacteremia Current Visit: Yes Status: Acute Code(s): R78.81 - BACTEREMIA
[2017-06-22] MEDS ORDERED: KEFZOL 1 GM** 3 G in Sodium Chloride 0.9% 50 ML 50 ML IV ONE (09:24)
[2017-06-22] MEDS ORDERED: Pepcid 20 MG VIAL IV SCH (09:24)
[2017-06-22] MEDS ORDERED: Reglan 10 MG/2 ML IV SCH (09:24)
--- NOTE | 2017-06-22 10:05 | CONS ---
CONSULT DATE: 06/22/2017 REASON FOR CONSULT: Left foot swelling. HISTORY: This patient has had a chronic swelling of his left foot that has been going on for many years. Over the last couple of months it has become very red, swollen and spontaneously draining purulent fluid that has been foul-smelling. PAST MEDICAL HISTORY: Melanoma. PAST SURGICAL HISTORY: Melanoma of back excision with left axillary lymph nodes, multiple skin lesions on the scalp, ventral hernia repair. MEDICATIONS: None. ALLERGIES: NONE. SOCIAL HISTORY: No tobacco. No alcohol. FAMILY HISTORY: Noncontributory. LAB DATA AND TESTS: PHYSICAL EXAMINATION: GENERAL: No acute distress. HEENT: Sclera nonicteric. Extraocular movements intact. NECK: Supple. No JVD. CHEST: Nonlabored breathing. ABDOMEN: Soft, nontender, nondistended. EXTREMITIES: Left foot with erythema and massive edema. The erythema extends over primarily the first digit up to the mid metatarsal area. There is ulcer and fluctuance fluid underneath the ulcer area on the dorsum of the foot over the first metatarsal. He also has a couple of small chronic ulcers on the plantar surface. The foot still has sensation. The patient denies being diabetic despite looking like diabetic foot ulcer. It is not very tender. He said it was extremity tender yesterday. LAB DATA AND TESTS: X-ray of the left foot shows gas in subcutaneous tissue as well as soft tissue swelling and edema. ASSESSMENT: Left foot abscess. PLAN: Plan for excision and drainage, possible great toe amputation. Continue antibiotics
[2017-06-22] MEDS: Lactated Ringers 1,000 ML IV SCH ×2 (10:06→16:01)
[2017-06-22] MEDS ORDERED: DIPRIVAN 200 MG/20 ML IV ONE (16:17)
[2017-06-22] MEDS ORDERED: Zemuron 100 MG/10 ML IV ONE (16:17)
[2017-06-22] MEDS ORDERED: Quelicin Fliptop 200 MG/10 ML IV ONE (16:17)
[2017-06-22] MEDS ORDERED: KEFZOL 1 GM IV ONE (16:17)
[2017-06-22] MEDS ORDERED: SUBLIMAZE 250 MCG/5 ML IV ONE (16:17)
[2017-06-22] MEDS: NORCO 5/325 MG PO PRN ×2 (17:20→22:07)
[2017-06-23] MEDS: Zosyn 3.375GM/100 Ml D5W 3.375 GM/100 ML IVPB IV SCH ×5 (00:47→23:00)
[2017-06-23] MEDS: TYLENOL 325 MG PO SCH ×2 (00:51→05:57)
[2017-06-23] MEDS: CLINDAMYCIN-D5W 600 MG/50 ML*** 600 MG/50 ML BAG IV SCH ×3 (05:33→21:54)
[2017-06-23] MEDS ORDERED: TROUGH DRUG LEVELS IJ ONE (06:30)
[2017-06-23] MEDS: VANCOCIN 1 GM VIAL*** 1.5 GM in Sodium Chloride 0.9% 500 ML 500 ML IV SCH ×2 (07:21→18:52)
--- NOTE | 2017-06-23 08:12 | OP ---
SURGERY DATE/TIME: 06/22/2017 1127 PREOPERATIVE DIAGNOSIS: Left foot abscess with wet gangrene. POSTOPERATIVE DIAGNOSES: Left foot abscess with wet gangrene and osteomyelitis. PROCEDURES: 1) I&D of left foot abscess with debridement of skin, soft tissue and bone. 2) Left great toe amputation with partial first metatarsal amputation. SURGEON: Hayes Cunningham M.D. ANESTHESIA: General. SPECIMEN: Swab for culture, tissue for culture, right great toe and metatarsal. ESTIMATED BLOOD LOSS: 50 cc. COMPLICATIONS: None. FINDINGS: Wet gangrene of the right foot with involvement of the bone of the first digit. PATIENT PRESENTATION: This 67 year-old male presents with several weeks of worsening redness and drainage from his left foot. He presented to the emergency department and was admitted and placed on IV antibiotics. Plain x-rays showed gas in the subcutaneous tissue and so he was consulted for debridement. After discussing risks and benefits of incision and drainage with possible need for great toe amputation the patient wished to proceed. DESCRIPTION OF PROCEDURE: The patient was brought to the operating room. The left foot was prepped and draped in sterile fashion. The patient was placed under general endotracheal anesthesia. There is a large ulcer near the end of the great toe metatarsal and this was probed this probed all the way to bone and there was purulent fluid around the bone of the great toe. There was actually free fluid and a piece of the bone that had likely been infected for quite some time. Decision was then made to proceed with great toe amputation. A V-shaped incision was made starting just above the ulcer and the toe was wedged out with electrocautery. The tendons were cut with electrocautery. Hemostasis was achieved with electrocautery. There was a very thick calcified tendon along the whole plantar surface of the foot which was also removed. The toe was then removed and some of the soft tissue and bone were sent for culture and the rest were sent for pathology. The metatarsal was then exposed and it was cut back with bone cutter and removed with rongeur. The wound was then copiously irrigated. Hemostasis was achieved. Surgicel was placed in the bed of the wound. The wound was packed with wet Kerlix and dressing was applied. The patient was recovered and taken to PACU in stable condition with plans for either eventual Wound-Vac therapy or delayed primary closure.
[2017-06-23] MEDS ORDERED: TYLENOL 325 MG PO PRN (09:48)
--- NOTE | 2017-06-23 09:49 | PCM.NOTE ---
Date and Time: 06/23/17944 Subjective Assessment: doing well now no pain lots of drainage post op slept better last night no fevers. Objective Exam General Appearance: no apparent distress, alert Neurologic Exam: alert, oriented x 3, cooperative, normal mood/affect, nml cerebellar function, sensation nml, No motor deficits Skin Exam: normal color, warm, dry Eye Exam: PERRL, EOMI, eyes nml inspection Ears, Nose, Throat Exam: normal ENT inspection, pharynx normal, moist mucous membranes Neck Exam: normal inspection, non-tender, supple, full range of motion Respiratory Exam: normal breath sounds, lungs clear, No respiratory distress Cardiovascular Exam: regular rate/rhythm, normal heart sounds Gastrointestinal/Abdomen Exam: soft, No tenderness, No mass Extremity Exam: other (right foot with surgical bandage still in place with bloody drainage at end no warmth proximally) Back Exam: normal inspection, normal range of motion, No CVA tenderness, No vertebral tenderness Male Genitalia Exam: deferred Rectal Exam: deferred OBJECTIVE DATA Vital Signs: Vital Signs - 24 hr Temp Pulse Resp BP Pulse Ox 06/23/17 08:00 98.1 F 90 20 130/84 98 06/23/17 03:55 99.0 F 82 18 126/90 94 L 06/23/17 00:00 18 06/22/17 20:00 99.9 F 86 18 105/64 94 L 06/22/17 16:30 99.1 F 91 H 20 114/60 93 L 06/22/17 15:30 99.8 F 93 H 20 113/59 92 L 06/22/17 14:30 99.6 F 95 H 20 116/61 92 L 06/22/17 14:00 98.4 F 94 H 18 104/64 92 L 06/22/17 13:30 98.4 F 91 H 18 106/63 93 L 06/22/17 13:15 98.4 F 89 18 113/74 91 L 06/22/17 11:40 98.5 F 93 H 20 110/73 97 Pain Assessment - Last Documented Pain Intensity 0 Pain Scale Used [facility] Intake and Output: Intake & Output 06/20/17 06/21/17 06/22/17 06/23/17 11:59 11:59 11:59 11:59 Intake Total 2781 4170 Output Total 800 1075 Balance 1981 3095 Weight 124.7 kg Lab Results: Lab Results-Last 24 Hours 06/23/17 Range/Units 06:30 Vancomycin Trough 10.24 H (5-10) ug/mL Radiology Exams: Radiology Procedures Category Date Time Status ARTERIAL UNILAT/LTD LOWER EXT [US] Routine Exams 06/21/17 11:04 Completed FOOT (MINIMUM 3 VIEWS) Stat Exams 06/21/17 08:59 Completed Assessment/Plan (1) Necrotizing cellulitis Current Visit: Yes Status: Acute Onset Date: ~06/21/17 Assessment & Plan: cultures still pending 2/2 blood culture positive pod 1 of great toe removal and debridement of necrotic tissue by Dr. Augustin Cunningham continue vanc, zosyn, clinda pending cultures wound care per surgery orders checking with them will undress and check infection if no specific orders Code(s): L03.90 - CELLULITIS, UNSPECIFIED (2) Sepsis Current Visit: Yes Status: Acute Onset Date: ~06/21/17 (3) Bacteremia Current Visit: Yes Status: Acute Onset Date: ~06/21/17 Code(s): R78.81 - BACTEREMIA (4) Osteomyelitis Current Visit: Yes Status: Acute Assessment & Plan: right great toe removed pod 1 Code(s): M86.9 - OSTEOMYELITIS, UNSPECIFIED
[2017-06-23] MEDS: ENOXAPARIN SODIUM SQ SCH (10:06)
[2017-06-24] MEDS: Lactated Ringers 1,000 ML IV SCH (04:12)
[2017-06-24] MEDS: CLINDAMYCIN-D5W 600 MG/50 ML*** 600 MG/50 ML BAG IV SCH ×3 (05:46→23:05)
[2017-06-24] MEDS: Zosyn 3.375GM/100 Ml D5W 3.375 GM/100 ML IVPB IV SCH ×3 (06:36→19:04)
[2017-06-24] MEDS: VANCOCIN 1 GM VIAL*** 1.5 GM in Sodium Chloride 0.9% 500 ML 500 ML IV SCH ×2 (08:22→19:54)
--- NOTE | 2017-06-24 08:36 | PCM.NOTE ---
Date and Time: 06/24/17 0827 OBJECTIVE DATA Vital Signs: Vital Signs - 24 hr Temp Pulse Resp BP Pulse Ox 06/24/17 07:01 98.7 F 82 20 147/89 97 06/24/17 04:00 97.0 F 70 18 116/68 98 06/23/17 23:53 20 06/23/17 19:50 97.9 F 83 18 122/74 94 L 06/23/17 16:00 97.9 F 78 18 116/81 97 06/23/17 12:00 97.9 F 80 20 119/77 96 Pain Assessment - Last Documented Pain Intensity 0 Pain Scale Used 0-10 Pain Scale Intake and Output: Intake & Output 06/21/17 06/22/17 06/23/17 06/24/17 11:59 11:59 11:59 11:59 Intake Total 2781 4170 3850 Output Total 800 1075 1825 Balance 1981 [id number] Weight 124.7 kg 124.4 kg 124 kg Multi-Disciplinary Progress Notes: Multi-Disciplinary Progress Notes 06/23/17 11:22 Pharmacy Note by Celestine Garcia Vancomycin trough therapeutic at 10.24. Creatinine improving. Keep same dose. Initialized on 06/23/17 11:22 - END OF NOTE Assessment/Plan (1) Necrotizing cellulitis Current Visit: Yes Status: Acute Onset Date: ~06/21/17 Assessment & Plan: with wound culture with MRSA and Beta hemolytic strep as well as 2/2 blood cultures with beta hemolytic strep pending ID awaiting official report and sensitivities continue current abx for now and adjust based on cultures with the bacteremia plan for at least 2 weeks abx with him afebrile now will have picc placed for skilled nursing outpatient antibiotic infusions as he has had difficulty keepnig a peripheral iv concern with the redness of the 2nd toe that was not amputated and swelling around this as to possible involvement of cellulitis in this bone Surgery recommends long coarse of antibiotics and agree with the concern on the second toe an the bacteremia for possible 4 week coarse will get picc line Code(s): L03.90 - CELLULITIS, UNSPECIFIED (2) Sepsis Current Visit: Yes Status: Acute Onset Date: ~06/21/17 (3) Bacteremia Current Visit: Yes Status: Acute Onset Date: ~06/21/17 Assessment & Plan: Beta hemolytic strep in both bottles pending ID at reference lab Code(s): R78.81 - BACTEREMIA (4) Osteomyelitis Current Visit: Yes Status: Acute Onset Date: ~06/22/17 Code(s): M86.9 - OSTEOMYELITIS, UNSPECIFIED
--- NOTE | 2017-06-24 10:44 | XRAY ---
Indication: Ultrasound guidance for PICC line placement. Initial sonographic imaging of the right upper extremity was performed for localization of patent veins. A patent basilic vein identified above the elbow. Ultrasound guidance was then used for PICC line insertion. Full PICC line insertion is reported separately.
--- NOTE | 2017-06-24 10:46 | XRAY ---
Indication: Long-term IV access and therapy for left foot infection/osteomyelitis. Informed consent obtained. Patient was placed on the fluoroscopic table in a supine position. Initial sonographic imaging of the right upper extremity was performed for localization of patent veins. The right upper extremity was then prepped and draped in sterile fashion. Tourniquet applied. 1% lidocaine plain used for local anesthesia. Using ultrasound guidance and a micropuncture needle, a basilic vein above the elbow was successfully percutaneously cannulized. A floppy tip 0.018 guidewire inserted. Tourniquet released. Needle was exchanged for a 5 [place] dilator peel-away sheath catheter. Ultimately a 5 [place] double-lumen PICC line was inserted over a longer 0.018 guidewire with the tip positioned in the distal SVC using fluoroscopic guidance. Guidewire removed. Both ports flushed with heparinized saline. Catheter was secured. Postoperative instructions and orders given. Patient discharged in good condition. Impression: Technically successful right upper extremity PICC line placement using ultrasound and fluoroscopic guidance. No immediate complications. Approximately 1 cc blood loss. Approximately 0.4 minute of fluoroscopy used. Catheter length is 41 cm.
[2017-06-24] MEDS ORDERED: Sodium Chloride 0.9% 10 ML FLUSH Syringe IV PRN (11:01)
[2017-06-24] MEDS: ENOXAPARIN SODIUM SQ SCH (11:36)
[2017-06-25] MEDS: Zosyn 3.375GM/100 Ml D5W 3.375 GM/100 ML IVPB IV SCH ×5 (01:05→23:52)
[2017-06-25] MEDS: CLINDAMYCIN-D5W 600 MG/50 ML*** 600 MG/50 ML BAG IV SCH ×3 (05:56→21:49)
[2017-06-25 06:11] LABS: Granulocyte Absolute (ANC) 2.49 (1.4-6.9); Hemoglobin 12.2 gm/dl (12.5-18.0); Mean Cell Volume 89.2 fl (78-100); Mean Platelet Volume 10.9 fl (6-9.5); Platelet Count 201 K/mm3 (150-450); Red Blood Count 4.15 M/mm3 (4.1-5.6); Red Cell Distribution Width 13.9 % (11.5-14.0); White Blood Count 4.7 K/mm3 (4.0-10.5)
[2017-06-25 06:17] LABS: Mean Corpuscular Hemoglobin 29.3 pg (26-32)
[2017-06-25 06:21] LABS: ALBUMIN 2.8 g/dL (3.5-5.0); ALKALINE PHOSPHATASE 89 U/L (38-126); ANION GAP 10.8 MEQ/L (5-15); BLOOD UREA NITROGEN 8 mg/dL (9-20); CHLORIDE 103 mmol/L (98-107); Calcium 8.1 mg/dL (8.4-10.2); Carbon Dioxide 28 mmol/L (22-30); Creatinine 1 0.72 mg/dL (0.66-1.25); Glucose 106 mg/dL (74-106); Potassium 3.8 mmol/L (3.5-5.1); SGOT/AST 37 U/L (17-59); SGPT/ALT 25 U/L (0-50); SODIUM 138 mmol/L (137-145)
[2017-06-25] MEDS: VANCOCIN 1 GM VIAL*** 1.5 GM in Sodium Chloride 0.9% 500 ML 500 ML IV SCH ×2 (07:56→18:24)
--- NOTE | 2017-06-25 09:30 | PCM.NOTE ---
Date and Time: 06/25/17926 Subjective Assessment: patient with no complaints today, tolerating po intake and not having much pain in the foot. Objective Exam General Appearance: no apparent distress, alert, obese Eye Exam: PERRL, EOMI, eyes nml inspection Respiratory Exam: normal breath sounds, lungs clear, No respiratory distress Cardiovascular Exam: regular rate/rhythm, normal heart sounds Extremity Exam: other (left foot unwrapped, great toe surgically absent with wound bed clean, serous drainage. mild erythema and soft tissue at base of second toe) OBJECTIVE DATA Vital Signs: Vital Signs - 24 hr Temp Pulse Resp BP Pulse Ox 06/25/17 07:16 97.6 F 67 18 103/70 95 06/25/17 04:00 98.2 F 71 18 117/76 96 06/25/17 00:00 97.9 F 70 18 121/65 91 L 06/24/17 20:00 98.1 F 73 22 135/80 95 06/24/17 16:00 96.5 F 74 16 139/92 96 06/24/17 12:16 98.1 F 74 20 147/92 96 Pain Assessment - Last Documented Pain Intensity 0 Pain Scale Used 0-10 Pain Scale Intake and Output: Intake & Output 06/22/17 06/23/17 06/24/17 06/25/17 11:59 11:59 11:59 11:59 Intake Total 2781 4170 3850 2431 Output Total 800 1075 1825 450 Balance 1980 [id number] Weight 124.7 kg 124.4 kg 124 kg 124.3 kg Lab Results: Lab Results-Last 24 Hours 06/25/17 06/25/17 Range/Units 05:45 05:45 WBC 4.7 (4.0-10.5) K/mm3 RBC 4.15 (4.1-5.6) M/mm3 Hgb 12.2 L (12.5-18.0) gm/dl Hct 37.0 L (42-50) % MCV 89.2 (78-100) fl MCH 29.3 (26-32) pg MCHC 33.0 (32-36) g/dl RDW 13.9 (11.5-14.0) % Plt Count 201 (150-450) K/mm3 MPV 10.9 H (6-9.5) fl Absolute Granulocytes 2.49 (1.4-6.9) Sodium 138 (137-145) mmol/L Potassium 3.8 (3.5-5.1) mmol/L Chloride 103 (98-107) mmol/L Carbon Dioxide 28 (22-30) mmol/L Anion Gap 10.8 (5-15) MEQ/L BUN 8 L (9-20) mg/dL Creatinine 0.72 (0.66-1.25) mg/dL Estimated GFR > 60.0 ML/MIN Glucose 106 (74-106) mg/dL Calcium 8.1 L (8.4-10.2) mg/dL Total Bilirubin 0.30 (0.2-1.3) mg/dL AST 37 (17-59) U/L ALT 25 (0-50) U/L Alkaline Phosphatase 89 (38-126) U/L Serum Total Protein 6.0 L (6.3-8.2) g/dL Albumin 2.8 L (3.5-5.0) g/dL Radiology Exams: Radiology Procedures Category Date Time Status GUIDANCE FOR NEEDLE PLACEMENT [US] Routine Exams 06/24/17 09:13 Completed PICC LINE PLACEMENT Routine Exams 06/24/17 10:34 Completed Multi-Disciplinary Progress Notes: Multi-Disciplinary Progress Notes 06/24/17 09:45 (created 06/24/17 14:59) Case Management Note by Shira Helm DISCHARGE PLAN REVIEWED WITH PT. REPORTS THAT HE LIVES 2 MILES FROM HERE AND IS PLANNING TO RETURN TO [facility] FOR CONTINUED IV ABX AND WOUND CARE WHEN PHYSICIAN FEELS HE CAN DISCHARGE HOME. DID DISCUSS SWING BED FOR IV ABX AND WOUND CARE. PT IS AGREEABLE FOR THIS PLAN FOR SHORT TERM TREATMENT. VERBALIZED UNDERSTANDING THAT HE WILL REQUIRE ABX AND WOUND CARE. REPORTS THAT HIS WOUND CULTURE IS ALSO STILL PENDING. WILL EVENTUALLY RETURN HOME WITH KINSEY. BUT KINSEY [employer]. PT REPORTS THAT HE DOES NOT HAVE ANYONE ELSE TO DRIVE HIM TO HOSPITAL DAILY, DID DISCUSS TRANSPORTATION PROVIDERS. WILL GIVE LIST OF PROVIDERS PRIOR TO DISCHARGE. DECLINED ADDNL NEEDS AT PRESENT. WILL FOLLOW. Initialized on 06/24/17 14:59 - END OF NOTE Assessment/Plan (1) Necrotizing cellulitis Current Visit: Yes Status: Acute Onset Date: ~06/21/17 Assessment & Plan: on cleocin and vanc, wound culture with MRSA, still no ID on blood cultures with gram positive cocci in chains 04/15 apparently sent to reference lab, still no final report so will continue current regimen. considering wound vac, likely discharge on tuesday Code(s): L03.90 - CELLULITIS, UNSPECIFIED (2) Bacteremia Current Visit: Yes Status: Acute Onset Date: ~06/21/17 Code(s): R78.81 - BACTEREMIA (3) Sepsis Current Visit: Yes Status: Acute Onset Date: ~06/21/17
[2017-06-25 09:32] LABS: BAND 4 % (0.0-2.0); Eosinophil 9 % (0.00-3.0); Lymphocytes 24 % (24-44); Monocyte 9 % (0.0-12.0); Neutrophils 54 % (36.-66.); Platelet Estimate NORMAL (NORMAL); Total Cells Counted 100; Toxic Granulation 2+
[2017-06-25] MEDS: ENOXAPARIN SODIUM SQ SCH (10:30)
[2017-06-25] MEDS: Lactated Ringers 1,000 ML IV SCH (17:41)
[2017-06-26] MEDS: CLINDAMYCIN-D5W 600 MG/50 ML*** 600 MG/50 ML BAG IV SCH ×3 (05:10→21:57)
[2017-06-26] MEDS: Zosyn 3.375GM/100 Ml D5W 3.375 GM/100 ML IVPB IV SCH ×3 (05:44→17:06)
[2017-06-26 05:48] LABS: Granulocyte Absolute (ANC) 2.83 (1.4-6.9); Hematocrit 37.3 % (42-50); Hemoglobin 12.3 gm/dl (12.5-18.0); Mean Cell Volume 88.8 fl (78-100); Mean Platelet Volume 10.9 fl (6-9.5); Platelet Count 214 K/mm3 (150-450); Red Cell Distribution Width 13.9 % (11.5-14.0); White Blood Count 5.4 K/mm3 (4.0-10.5)
[2017-06-26 05:51] LABS: Mean Corpuscular Hemoglobin 29.2 pg (26-32)
[2017-06-26 06:21] LABS: ANION GAP 10.2 MEQ/L (5-15); BLOOD UREA NITROGEN 7 mg/dL (9-20); CHLORIDE 103 mmol/L (98-107); Calcium 8.1 mg/dL (8.4-10.2); Carbon Dioxide 27 mmol/L (22-30); Creatinine 1 0.71 mg/dL (0.66-1.25); Glucose 96 mg/dL (74-106); Potassium 4.3 mmol/L (3.5-5.1); SODIUM 136 mmol/L (137-145)
[2017-06-26] MEDS: VANCOCIN 1 GM VIAL*** 1.5 GM in Sodium Chloride 0.9% 500 ML 500 ML IV SCH ×3 (06:28→19:29)
--- NOTE | 2017-06-26 08:39 | PCM.NOTE ---
Date and Time: 06/26/17 0836 Subjective Assessment: patient having some diarrhea this morning, tolerating regular diet. no new complaints Objective Exam General Appearance: no apparent distress, alert, obese Skin Exam: normal color, warm, dry Respiratory Exam: normal breath sounds, lungs clear, No respiratory distress Cardiovascular Exam: regular rate/rhythm, normal heart sounds Gastrointestinal/Abdomen Exam: soft, No tenderness, No mass Extremity Exam: other (moderate swelling 2nd toe on left foot, great toe surgically absent) OBJECTIVE DATA Vital Signs: Vital Signs - 24 hr Temp Pulse Resp BP Pulse Ox 06/26/17 07:19 97.7 F 66 18 145/90 97 06/26/17 04:15 98.3 F 63 16 131/77 95 06/25/17 23:04 98.3 F 73 24 143/89 95 06/25/17 19:15 98.3 F 74 20 123/76 96 06/25/17 16:53 98.3 F 72 20 140/91 97 06/25/17 11:28 97.7 F 73 18 129/73 95 Pain Assessment - Last Documented Pain Intensity 0 Pain Scale Used 0-10 Pain Scale Intake and Output: Intake & Output 06/23/17 06/24/17 06/25/17 06/26/17 11:59 11:59 11:59 11:59 Intake Total 4170 3850 2431 3428 Output Total 1075 8008 309 4027 Balance 3095 2025 1981 2428 Weight 124.4 kg 124 kg 124.3 kg Lab Results: Lab Results-Last 24 Hours 06/25/17 06/26/17 06/26/17 Range/Units 05:45 05:35 05:35 WBC 5.4 (4.0-10.5) K/mm3 RBC 4.20 (4.1-5.6) M/mm3 Hgb 12.3 L (12.5-18.0) gm/dl Hct 37.3 L (42-50) % MCV 88.8 (78-100) fl MCH 29.2 (26-32) pg MCHC 33.0 (32-36) g/dl RDW 13.9 (11.5-14.0) % Plt Count 214 (150-450) K/mm3 MPV 10.9 H (6-9.5) fl Absolute Granulocytes 2.83 (1.4-6.9) Segmented Neutrophils 54 (36.-66.) % Band Neutrophils 4 H (0.0-2.0) % Lymphocytes (Manual) 24 (24-44) % Monocytes (Manual) 9 (0.0-12.0) % Eosinophils (Manual) 9 H (0.00-3.0) % Toxic Granulation 2+ Platelet Estimate NORMAL (NORMAL) RBC Morphology ABNORMAL Sodium 136 L (137-145) mmol/L Potassium 4.3 (3.5-5.1) mmol/L Chloride 103 (98-107) mmol/L Carbon Dioxide 27 (22-30) mmol/L Anion Gap 10.2 (5-15) MEQ/L BUN 7 L (9-20) mg/dL Creatinine 0.71 (0.66-1.25) mg/dL Estimated GFR > 60.0 ML/MIN Glucose 96 (74-106) mg/dL Calcium 8.1 L (8.4-10.2) mg/dL Vancomycin Trough (5-10) ug/mL 06/26/17 Range/Units 05:35 WBC (4.0-10.5) K/mm3 RBC (4.1-5.6) M/mm3 Hgb (12.5-18.0) gm/dl Hct (42-50) % MCV (78-100) fl MCH (26-32) pg MCHC (32-36) g/dl RDW (11.5-14.0) % Plt Count (150-450) K/mm3 MPV (6-9.5) fl Absolute Granulocytes (1.4-6.9) Segmented Neutrophils (36.-66.) % Band Neutrophils (0.0-2.0) % Lymphocytes (Manual) (24-44) % Monocytes (Manual) (0.0-12.0) % Eosinophils (Manual) (0.00-3.0) % Toxic Granulation Platelet Estimate (NORMAL) RBC Morphology Sodium (137-145) mmol/L Potassium (3.5-5.1) mmol/L Chloride (98-107) mmol/L Carbon Dioxide (22-30) mmol/L Anion Gap (5-15) MEQ/L BUN (9-20) mg/dL Creatinine (0.66-1.25) mg/dL Estimated GFR ML/MIN Glucose (74-106) mg/dL Calcium (8.4-10.2) mg/dL Vancomycin Trough 13.91 H (5-10) ug/mL Radiology Exams: Radiology Procedures Category Date Time Status GUIDANCE FOR NEEDLE PLACEMENT [US] Routine Exams 06/24/17 09:13 Completed PICC LINE PLACEMENT Routine Exams 06/24/17 10:34 Completed Assessment/Plan (1) Necrotizing cellulitis Current Visit: Yes Status: Acute Onset Date: ~06/21/17 Assessment & Plan: continue vanc and clindamycin, blood culture final ID pending. Code(s): L03.90 - CELLULITIS, UNSPECIFIED (2) Bacteremia Current Visit: Yes Status: Acute Onset Date: ~06/21/17 Assessment & Plan: still no final on the blood culture and sensitivity Code(s): R78.81 - BACTEREMIA (3) Sepsis Current Visit: Yes Status: Acute Onset Date: ~06/21/17
[2017-06-26] MEDS: ENOXAPARIN SODIUM SQ SCH (10:28)
[2017-06-26 11:33] LABS: ATYPICAL LYMPHS 4 %; Eosinophil 6 % (0.00-3.0); Lymphocytes 25 % (24-44); Monocyte 9 % (0.0-12.0); Neutrophils 56 % (36.-66.); Platelet Estimate NORMAL (NORMAL); Total Cells Counted 100; Toxic Granulation 2+
[2017-06-26 11:34] LABS: Polychromasia 1+
[2017-06-27] MEDS: Zosyn 3.375GM/100 Ml D5W 3.375 GM/100 ML IVPB IV SCH ×2 (00:17→06:54)
[2017-06-27] MEDS: Lactated Ringers 1,000 ML IV SCH (05:57)
[2017-06-27] MEDS: CLINDAMYCIN-D5W 600 MG/50 ML*** 600 MG/50 ML BAG IV SCH ×3 (05:57→22:20)
--- NOTE | 2017-06-27 07:22 | PCM.NOTE ---
Date and Time: 06/27/17711 Subjective Assessment: he is ready to go home but otherwise doing well pain controlled the swelling is improving less drainage no fever or nausea or vomiting Objective Exam General Appearance: no apparent distress, obese Neurologic Exam: alert, oriented x 3, cooperative Skin Exam: warm Respiratory Exam: normal breath sounds Cardiovascular Exam: regular rate/rhythm, normal heart sounds Gastrointestinal/Abdomen Exam: soft, normal bowel sounds, No tenderness Extremity Exam: other (left foot with 1st toe amputation 2nd toe still swollen and red but improving with proximal redness and swelling slowly improving) OBJECTIVE DATA Vital Signs: Vital Signs - 24 hr Temp Pulse Resp BP Pulse Ox 06/27/17 04:00 97.9 F 64 16 131/84 94 L 06/27/17 00:00 98.4 F 72 18 133/80 93 L 06/26/17 20:00 97.9 F 66 18 123/77 95 06/26/17 16:24 97.8 F 72 18 142/68 97 06/26/17 16:00 97.8 F 69 20 146/86 97 06/26/17 12:13 97.8 F 69 20 146/86 97 06/26/17 07:19 97.7 F 66 18 145/90 97 Pain Assessment - Last Documented Pain Intensity 0 Pain Scale Used 0-10 Pain Scale Intake and Output: Intake & Output 06/24/17 06/25/17 06/26/17 06/27/17 11:59 11:59 11:59 11:59 Intake Total 3850 2431 3428 3633 Output Total 6417 905 2780 600 Balance 2024 1980 2428 3033 Weight 124 kg 124.3 kg 122.4 kg Lab Results: Lab Results-Last 24 Hours 06/26/17 Range/Units 05:35 Segmented Neutrophils 56 (36.-66.) % Lymphocytes (Manual) 25 (24-44) % Monocytes (Manual) 9 (0.0-12.0) % Eosinophils (Manual) 6 H (0.00-3.0) % Atypical Lymphocytes 4 % Toxic Granulation 2+ Platelet Estimate NORMAL (NORMAL) RBC Morphology ABNORMAL Polychromasia 1+ Multi-Disciplinary Progress Notes: Multi-Disciplinary Progress Notes 06/26/17 09:59 Case Management Note by Brittni Zhu DISCUSSED DISCHARGE NEEDS WITH MR. ORDAZ. ADVISED THAT PT WOULD BE WORKING ON GETTING A WOUND VAC FOR HIM AND THAT WE WERE AWARE THAT DR. MARV JURADO WANTS ONE, EXPLICITLY. DISCUSSED AND EDUCATED ON WOUND VAC USE AND WEIGHT BEARING WELL HIS HELP AT HOME. PATIENT REFUSES HOME HEALTH CARE, STATES HE LIVES WITH SEVERAL PEOPLE, ALL OF WHOM WOULD BE ABLE TO HELP HIM. HE DOES WANT TO GO HOME AND COME BACK IN DAILY FOR DRESSING CHANGES AND IV ANTIBIOTICS. HE STATES HE ONLY LIVES 2 MILES AWAY AND IT WOULD BE EASIER FOR HIM. HE WANTS TO DO WHAT IS BEST, BUT DOES NOT LIKE THE IDEA OF STAYING HERE LONGER IN SWING BED. ADVISED THAT PT WOULD INVESTIGATE THE WOUND VAC MORE ON TUESDAY, AND THAT D/C PLANNING WOULD CONTINUE TO WORK WITH HIM. HE AGREES WITH THIS AND KNOWS THAT IT WOULD BE AT LEAST TUESDAY BEFORE HE WOULD BE READY FOR DISCHARGE, MAYBE LONGER. Initialized on 06/26/17 09:59 - END OF NOTE Assessment/Plan (1) Necrotizing cellulitis Current Visit: Yes Status: Acute Onset Date: ~06/21/17 Assessment & Plan: with group a strep bacteremia and mrsa osteomyelitis s/p removal of 1st toe surgery plans for wound vac treatment with the persistent 2nd toe evidence of infection and concern for possible osteo here as well would recommend 4 weeks of iv antibiotics based on cultures would use vancomycin q12h dosing and Ceftriaxone 2g daily via PICC he has been offered ecf vs swing bed and would prefer to go home and return for outpatient infusions and wound vac changes we are working on setting this up. Code(s): L03.90 - CELLULITIS, UNSPECIFIED (2) Sepsis Current Visit: Yes Status: Acute Onset Date: ~06/21/17 (3) Bacteremia Current Visit: Yes Status: Acute Onset Date: ~06/21/17 Code(s): R78.81 - BACTEREMIA (4) Osteomyelitis Current Visit: Yes Status: Acute Onset Date: ~06/22/17 Code(s): M86.9 - OSTEOMYELITIS, UNSPECIFIED
[2017-06-27] MEDS: VANCOCIN 1 GM VIAL*** 1.5 GM in Sodium Chloride 0.9% 500 ML 500 ML IV SCH ×2 (08:26→17:32)
[2017-06-27] MEDS: ENOXAPARIN SODIUM SQ SCH (08:26)
[2017-06-27] MEDS: ROCEPHIN 2 Gm-D5w 50ML BAG** 2 G/50 ML IVPB IV SCH (10:11)
[2017-06-28] MEDS: Lactated Ringers 1,000 ML IV SCH (02:44)
[2017-06-28] MEDS: CLINDAMYCIN-D5W 600 MG/50 ML*** 600 MG/50 ML BAG IV SCH (06:40)
[2017-06-28] MEDS: VANCOCIN 1 GM VIAL*** 1.5 GM in Sodium Chloride 0.9% 500 ML 500 ML IV SCH ×2 (08:00→18:24)
[2017-06-28] MEDS: ROCEPHIN 2 Gm-D5w 50ML BAG** 2 G/50 ML IVPB IV SCH (10:20)
[2017-06-28] MEDS: ENOXAPARIN SODIUM SQ SCH (10:20)
--- NOTE | 2017-06-28 14:13 | PCM.NOTE ---
Date and Time: 06/28/17 1409 Subjective Assessment: doing well tolerated dressing change well yesterday waiting on the wound vac measurments taken yesterday has remained afebrile wound was derided yesterday tolerating antibiotics well. Objective Exam General Appearance: no apparent distress (left foot dressing clean and dry currently after chane with calcium alginate yesterday no proximal warmth or swelling), alert Neurologic Exam: alert, oriented x 3, cooperative, normal mood/affect, nml cerebellar function, sensation nml, No motor deficits Skin Exam: normal color, warm, dry Eye Exam: PERRL, EOMI, eyes nml inspection Ears, Nose, Throat Exam: normal ENT inspection, pharynx normal, moist mucous membranes Neck Exam: normal inspection, non-tender, supple, full range of motion Respiratory Exam: normal breath sounds, lungs clear, No respiratory distress Cardiovascular Exam: regular rate/rhythm, normal heart sounds Gastrointestinal/Abdomen Exam: soft, No tenderness, No mass Extremity Exam: normal inspection, normal range of motion Back Exam: normal inspection, normal range of motion, No CVA tenderness, No vertebral tenderness Male Genitalia Exam: deferred Rectal Exam: deferred OBJECTIVE DATA Vital Signs: Vital Signs - 24 hr Temp Pulse Resp BP Pulse Ox 06/28/17 11:55 98.4 F 76 18 127/78 95 06/28/17 07:34 98.5 F 86 18 132/75 96 06/28/17 04:00 98.2 F 75 20 125/73 94 L 06/28/17 00:00 98.1 F 66 18 123/74 96 06/27/17 20:00 97.5 F 69 18 154/92 97 06/27/17 16:00 97.9 F 78 18 122/71 97 Pain Assessment - Last Documented Pain Intensity 0 Pain Scale Used 0-10 Pain Scale Intake and Output: Intake & Output 06/26/17 06/27/17 06/28/17 06/29/17 11:59 11:59 11:59 11:59 Intake Total 3428 3633 2746 Output Total 1000 600 Balance 2428 3033 2746 Weight 122.4 kg 123.1 kg Multi-Disciplinary Progress Notes: Multi-Disciplinary Progress Notes 06/27/17 15:34 Physical Therapy Note by Thao Velazquez WOUND RE-ASSESSED THIS A.M.WITH THE WOUND VAC REP PRESENT. SHE WAS ABLE TO OBSERVE THE POST-OP OPEN WOUND MEASUREMENTS WERE TAKEN. WOUND SIZE IS 7.2 X 3.5 X 3.5 CM. THE [facility] WOUND NURSE IS EXPECTED HERE TUESDAY TO APPLY THE WOUND VAC PRIOR TO PATIENT D/C HOME. PATIENT PCP WILL FINALIZE WITH PHARMACY THE OUTPT INFUSION ANTIBIOTIC TX THAT WILL CONTINUE AFTER D/C. WOUND VAC WILL BE MONITORED IN THE INFUSION CENTER BY NURSE AND P.T. TODAY WOUND WAS CLEANSED WITH HIBICLENS/STERILE WATER SOAK; SHARP DEBRIDEMENT WITH SCALPEL OF CALLOUS AREAS PERIWOUND; SCISSORS AND FORCEP DEBRIDEMENT OF PRIMARY WOUND EDGES AND WOUND BED INDICATED. WOUND WAS DRESSED WITH CALCIUM ALGINATE IN WOUND BED TO PROMOTE AUTOLYTIC DEBRIDEMENT IN PREP FOR VAC. BARRIER OINTMENT TOPICALLY APPLIED PERIWOUND FOR CALLOUS AND SKIN HYDRATION AND CONDITIONING TO FACILITATE SLOUGHING OF NON-VIABLE EPIDERMIS. SECONDARY DRESSING WITH 4X4 LAYERED GAUZE AND KINA WRAP ANCHOR. DRESSING SECURED WITH TUBIGRIP SLEEVE FOR MILD COMPRESSION WELL. HOPEFUL TO MAINTAIN INTACT DRESSING FOR 1-2 DAYS. Initialized on 06/27/17 15:34 - END OF NOTE Assessment/Plan (1) Necrotizing cellulitis Current Visit: Yes Status: Acute Onset Date: ~06/21/17 Assessment & Plan: with osteomyelitis and amputation of the 1st toe and part of first metatarsal with open wound improving concern for possible involvment of the 2nd toe as well with osteo will plan on 4 weeks antibiotic therapy for the wound culture + MRSA will continue the vanc with bid doseing and with the strep pyogenes bacteremia and gas gangrene he has completed 7 days of iv clindamycin for the antitoxigenic effects and was on zosyn that is changed to ceftriaxone and will complete 2g daily for additional 3 weeks at discharge Code(s): L03.90 - CELLULITIS, UNSPECIFIED (2) Sepsis Current Visit: Yes Status: Resolved Onset Date: ~06/21/17 (3) Bacteremia Current Visit: Yes Status: Resolved Onset Date: ~06/21/17 Code(s): R78.81 - BACTEREMIA (4) Osteomyelitis Current Visit: Yes Status: Acute Onset Date: ~06/22/17 Code(s): M86.9 - OSTEOMYELITIS, UNSPECIFIED
[2017-06-29] MEDS: VANCOCIN 1 GM VIAL*** 1.5 GM in Sodium Chloride 0.9% 500 ML 500 ML IV SCH ×2 (06:26→15:30)
--- NOTE | 2017-06-29 08:14 | PCM.DCORD ---
- Discharge Discharge Date: 06/29/17 Disposition: Home, Self-Care Condition: Stable Prescriptions: New Ceftriaxone in Is-Osm Dextrose [Ceftriaxone 2 gm Piggyback] 2 gm IV DAILY # 21 froz.piggy Vancomycin HCl in Dextrose 5 % [Vancomycin 1.5 Gram/250 ml-D5w] 1.5 gm IV Q12H #42 plast..bag Aspirin EC 81 mg [Ecotrin 81 mg] 81 mg PO DAILY #30 tablet Additional Instructions: weekly vanc trough, esr, cbc, bmp Wound vac changes / maintenance per PT wound care Follow up with: MARV JURADO MD [ASSOCIATE STAFF] - 1 Week
[2017-06-29] MEDS: ROCEPHIN 2 Gm-D5w 50ML BAG** 2 G/50 ML IVPB IV SCH (10:59)
[2017-06-29] MEDS: ENOXAPARIN SODIUM SQ SCH (10:59)
[2017-06-29 16:12] VITALS: BP 162/83; PULSE 63; O2SAT 96
--- NOTE | 2017-06-29 21:04 | PCM.DS ---
Discharge Summary Date of Admission: 06/21/17 08:03 Date of Discharge: 06/29/17 Admitting Physician: BREANNA RAPHAEL Consults: Consults on Case 06/21/17 15:30 Consult Surgery ROUTINE Primary Care Provider: NO FAMILY DOCTOR Allergies Allergies No Known Drug Allergies Allergy (Verified 05/11/17 10:10) Hospital Summary - Hospital Course Hospital Course: Mr. Maciel presented to the ED after having chronic wounds on his feet he believes for a long time he had previous partial amputation of the 2nd toe many years ago and was on antibiotics for 3 weeks and does not have a PCP. he states the wound on the top of the foot had been getting more swollen and then started draining then over the 3 days prior to presentation the foot became very swollen with purulent drainage from the ulcer and he developed fever chills and nausea and was not able to tolerate po. He finally went to the ED where initially he was treated with clindamycin in ED on arrival to floor the foot appeared to have significant infection and xray was obtained showing gas formation subcutaneous and he was started on vancomycin and zosyn and continued on the clinda as well. Peripharl artery ultrasound showed no evidence of significant blockages. He had 2/2 blood cultures showing group A strep pyogenes that was reported to the [facility] department. His wound culture grew the group A strep as well as MRSA. Surgery was consulted based on the xray results and he was taken to OR for I and D and it was found to have bone involvement with the infection and the 1st toe and partial 1st metatarsal was removed and wound left open. After the surgery he was doing much better there continued to be copious drainage and the second to remained red and edematous with proximal redness as well and some foul smelling drainage. Wound care was helping with absorbent dressing changes and consultation was obtained for wound vac. He was continued on zosyn and vanc and clinda awaiting the final cultures. When the returned he was kept on the vanc and clinda and on 06/27 the zosyn was changed to 2g of ceftriaxone in anticipation of outpatient continued antibiotic therapy for bactericidal agent vs the group A strep and the vanc to continue for the MRSA. The clinda was continued for a total of 7 days IV to help with any persistent toxin formation and after 7 days the redness had really improved and the swelling was beginning to improve and this was discontinued as well. He was fitted with the wound vac and a walking boot and arrangements are made for daily infusions bid for an additional 3 weeks at least of iv antibiotics with weekly labs. He has follow up with his surgeon Dr. Augustin Cunningham and myself. He had good understanding on importance of going for infusions and care of the wound vac. He had PICC placed 06/24/17 right upper extremity by Procedures 06/22/17: Dr. Augustin Cunningham amputation left 1st toe and partial 1st metatarsal with I and D of necrotizing cellulites 06/24/17: PICC insertion right upper extremity catheter length 41cm - Vitals & Intake/Output Vital Signs: Vital Signs Temperature 98.0 F 06/29/17 16:00 Pulse Rate 63 06/29/17 16:00 Respiratory Rate 18 06/29/17 16:00 Blood Pressure 162/83 06/29/17 16:00 O2 Sat by Pulse Oximetry 96 06/29/17 16:00 Intake & Output: Intake & Output 06/27/17 06/28/17 06/29/17 06/30/17 11:59 11:59 11:59 11:59 Intake Total 3633 2746 2525 960 Output Total 600 800 Balance 3033 2746 1725 960 Weight 122.4 kg 123.1 kg 123.1 kg - Lab Result Diagrams: 06/26/17 05:35 06/26/17 05:35 Micro Results-Entire Visit: Microbiology 06/22/17 12:30 Wound Culture - Final Toe - L Big (Greater) Methicillin Resist Staph Aur 06/22/17 12:30 Organism ID and Sensitivity - Final Toe - L Big (Greater) 06/24/17 20:50 Organism ID and Sensitivity - Final Blood 06/24/17 00:45 Organism ID and Sensitivity - Final Foot - Left Top - Procedures and Test Procedures and Tests throughout Hospitalization: Therapy Orders & Screens 06/23/17 12:32 PT Eval & Treat ( Order) Reason for Eval:: wound care and wound vac application Diagnosis: DECUBITUS ULCERS ON LEFT FOOT Discharge Exam General Appearance: obese Neurologic Exam: alert, oriented x 3, cooperative Skin Exam: warm, dry, other (back scar X 2 one from melanoma removal the other from skin graft harvest for that area) Ears, Nose, Throat Exam: moist mucous membranes Neck Exam: normal inspection, non-tender, supple Respiratory Exam: normal breath sounds, lungs clear Cardiovascular Exam: regular rate/rhythm, normal heart sounds, normal peripheral pulses Gastrointestinal/Abdomen Exam: normal bowel sounds, No tenderness, No distention Extremity Exam: other (left foot with open wound in v distribution with viable tissue minimal drainage mostly bloody currently with the surrounding redness much improved but persistent edema in the foot and lower leg good peripheral perfusion in the 2nd toe 2 sole ulcerations with crusted base.), No calf tenderness Final Diagnosis/Problem List - Final Discharge Diagnosis/Problem (1) Necrotizing cellulitis Status: Acute Onset Date: ~06/21/17 (2) Sepsis Status: Resolved Onset Date: ~06/21/17 (3) Bacteremia Status: Resolved Onset Date: ~06/21/17 (4) Osteomyelitis Status: Acute Onset Date: ~06/22/17 - Discharge Discharge Date: 06/29/17 Disposition: Home, Self-Care Condition: Stable Prescriptions: New Ceftriaxone in Is-Osm Dextrose [Ceftriaxone 2 gm Piggyback] 2 gm IV DAILY # 21 froz.piggy Vancomycin HCl in Dextrose 5 % [Vancomycin 1.5 Gram/250 ml-D5w] 1.5 gm IV Q12H #42 plast..bag Aspirin EC 81 mg [Ecotrin 81 mg] 81 mg PO DAILY #30 tablet Instructions: Osteomyelitis (DC), Sepsis, Adult (DC) Additional Instructions: weekly vanc trough, esr, cbc, bmp Wound vac changes / maintenance per PT wound care YOU WILL NEED TO COME TO HOSPITAL TWICE DAILY FOR YOUR IV ANTIBIOTICS. MORNING DOSE AT 6:00 A.M. AND EVENING DOSE AT 5:00 P.M. UNLESS OTHERWISE DIRECTED. Follow up with: BREANNA RAPHAEL [ACTIVE STAFF] - 07/14/17 1:00 pm MAYITO CUNNINGHAM [ACTIVE STAFF] - 07/05/17 9:30 am ([facility])
== END 2017-06-29 17:45 | disposition home or self-care (01) | DRG 579 ==
LOC: ED 20:01 → MED SURG 22:55 → OBSVTOIN 06-21 08:03
PROVIDERS: ADMIT Family Medicine; ATTEND Family Medicine
PROC: 0H9NXZX Drainage of Left Foot Skin, External Approach, Diagnostic (ICD-10-PCS; principal; 2017-06-20)
PROC: 0Y6Q0Z0 Detachment at Left 1st Toe, Complete, Open Approach (ICD-10-PCS; 2017-06-20)
DX: L03.116 Cellulitis of left lower limb (principal); A41.02 Sepsis due to Methicillin resistant Staphylococcus aureus; M86.9 Osteomyelitis, unspecified; R78.81 Bacteremia; L89.899 Pressure ulcer of other site, unspecified stage; M19.90 Unspecified osteoarthritis, unspecified site; Z86.73 Personal history of transient ischemic attack (TIA), and cerebral infarction without residual deficits; Z85.820 Personal history of malignant melanoma of skin; R32 Unspecified urinary incontinence; M79.89 Other specified soft tissue disorders
CPT/HCPCS: 10060; 28810; 36000; 36415; 36569; 73630; 76942; 77001; 80048; 80053; 80202; 81000; 82150; 82962; 83605; 83690; 83735; 85025; 85610; 85652; 85730; 86140; 87040; 87070; 87077; 87086; 87186; 93926; 96360; 96365; 96372; 97161; 97530; 97598; 97606; 99284; 99285; G0378; 88305; 88311; A6457; C1769; J0330; J0690; J0696; J1642; J1650; J2270; J2543; J2704; J3010; J3370; L4386; A9270-GY

== ENCOUNTER 2020-10-02 08:04 | Day surgery (SDC) | payer MEDICARE ==
--- NOTE | 2020-09-25 08:06 | HP ---
DATE OF SURGERY: 10/02/2020 HISTORY OF PRESENT ILLNESS: The patient is a 70 year-old male presented with a 2 x 2 cm raised, red and irregular skin lesion of the right proximal ear. He had this for some time. It appears it is growing. He wishes for surgical intervention. The patient does have a history of basal cell and melanoma. PAST MEDICAL HISTORY: Neuropathy. Osteomyelitis with left foot amputation. Melanoma. Basal cell. PAST SURGICAL HISTORY: Skin lesion removal. Left foot amputation. ALLERGIES: NKDA. MEDICATIONS: Gabapentin. FAMILY HISTORY: Breast cancer. Colon cancer. SOCIAL HISTORY: None. REVIEW OF SYSTEMS: CONSTITUTIONAL: Denies fever or chills. CHEST: Denies shortness of breath. CVS: Denies chest pain. ABDOMEN: Denies abdominal pain. INTEGUMENTARY: Right ear lesion. PHYSICAL EXAMINATION: GENERAL: No acute distress. CHEST: Nonlabored. No shortness of breath. CVS: Regular rate and rhythm. ABDOMEN: Soft. EXTREMITIES: No edema. NEUROLOGIC: Alert. PSYCHIATRIC: Appropriate. IMPRESSION: Right proximal auricular lesion, atypical. PLAN: Excision of the right proximal auricular lesion with split thickness skin graft with Dr. Ishmael Cunningham. The patient was offered colonoscopy at the time of the visit due to family history and he declined. As dictated by Raiza Dallas NP.
[~2020-10-02 08:04] MED LIST changes: +Lactated Ringers 1,000 ML IV SCH
[2020-10-02] MEDS ORDERED: Lactated Ringers 1,000 ML IV ONE (08:15)
[2020-10-02] MEDS ORDERED: MINERAL OIL LIGHT 10 ML FOR SURGERY ONE (09:52)
[2020-10-02] MEDS ORDERED: XYLOCAINE 1% HCL 20 ML MDV ONE ×2 (11:21→12:30)
[2020-10-02] MEDS ORDERED: KEFZOL 1 GM ONE (11:40)
[2020-10-02] MEDS ORDERED: DIPRIVAN 200 MG/20 ML IV ONE ×4 (11:49→12:39)
[2020-10-02] MEDS ORDERED: SUBLIMAZE 250 MCG/5 ML ONE ×2 (11:50)
[2020-10-02] MEDS ORDERED: MEFOXIN 2 GM PREMIX** 2 GM/50 ML ML IV SCH (12:00)
[2020-10-02] MEDS ORDERED: Triple Antibiotic Ointment ONE (12:41)
[2020-10-02] MEDS ORDERED: TORAdol 30 mg Injection ONE (13:09)
[2020-10-02 13:41] VITALS: O2SAT 96
[2020-10-02 13:51] VITALS: BP 114/68; PULSE 64
--- NOTE | 2020-10-02 14:56 | OP ---
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 PROCEDURES: 1) Excision of 2.5 cm skin cancer full thickness. 2) Lulu of 4 sq/cm with split thickness skin graft. 3) Application of 4 sq/cm split thickness skin graft. SURGEON: Ishmael Cunningham M.D. ANESTHESIA: General. COMPLICATIONS: None. CONDITION: Stable. INDICATION: The patient has multiple skin cancers. DESCRIPTION OF PROCEDURE: He was taken to surgery. General anesthetic. Routine prep and drape. Edges were marked 1 mm margin, 2 mm and wider areas. Hemostasis obtained with electrocautery. It was delivered. Edges were all grossly clear. Hemostasis obtained with electrocautery. Hemostasis satisfactory. Deep margins were all grossly clear. Skin harvested from the thigh 1/14,000 of an inch was applied with sutures 4-0 chromic. Sterile ointment applied. Sterile dressings to the leg. The patient tolerated the procedure satisfactorily.
== END 2020-10-02 13:55 | disposition home or self-care (01) ==
LOC: SDC 08:04 → EDSTATUS 09:52 → SDC 13:55
PROVIDERS: ATTEND Surgery
DX: C44.212 Basal cell carcinoma of skin of right ear and external auricular canal (principal); Z85.828 Personal history of other malignant neoplasm of skin; Z79.899 Other long term (current) drug therapy
CPT/HCPCS: 88305; J0690; J1885; J2704; J3010; A9270-GY